=== PATIENT | female | born 1975 | race Two or more races ===

== ENCOUNTER 2020-08-03 00:59 | Inpatient (IN) | payer OTHER ==
[2020-08-03] VITALS (18 sets, daily range): BP systolic 92–157; BP diastolic 64–95
[~2020-08-03] VITALS: Ht 160 cm; Wt 59.9 kg
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
[2020-08-03] MEDS ORDERED: Cefepime HCl 2 GM in NS 110 ML IV ONE (01:30)
[2020-08-03] MEDS ORDERED: Sodium Chloride 2,200 ML IVLG ONE (01:30)
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
[2020-08-03 01:39] LABS: BASOPHILS % (AUTO) 0.6 % (0.0-2.0); EOSINOPHILS % (AUTO) 0.2 % (0.0-3.0); HEMATOCRIT 35.2 % (37.0-47.0); HEMOGLOBIN 11.3 G/DL (12.0-16.0); MEAN CORPUSCULAR VOLUME 96 FL (80-99); NEUTROPHILS % (AUTO) 80.2 % (45.0-75.0); PLATELET COUNT 413 K/UL (150-450); RED BLOOD COUNT 3.68 M/UL (4.20-5.40); RED CELL DISTRIBUTION WIDTH 18.1 % (11.6-14.8); WHITE BLOOD COUNT 11.2 K/UL (4.8-10.8)
[2020-08-03] MEDS ORDERED: cefTRIAXone 1 GM in NS 55 ML IVPB ONE (01:45)
[2020-08-03] MEDS ORDERED: Pantoprazole Inj IVP ONE (01:45)
[2020-08-03 01:53] LABS: ANION GAP 13 mmol/L (5-15); BLOOD UREA NITROGEN 18 mg/dL (7-18); CALCIUM 7.6 MG/DL (8.5-10.1); CARBON DIOXIDE 20 MMOL/L (21-32); CHLORIDE 107 MMOL/L (98-107); CREATININE 1.5 MG/DL (0.55-1.30); POTASSIUM 4.4 MMOL/L (3.5-5.1); SODIUM 140 MMOL/L (136-145)
[2020-08-03 02:05] LABS: ALANINE AMINOTRANSFERASE 74 U/L (12-78); ALBUMIN 3.2 G/DL (3.4-5.0); ALBUMIN/GLOBULIN RATIO 0.9 (1.0-2.7); ALKALINE PHOSPHATASE 116 U/L (46-116); ASPARTATE AMINO TRANSFERASE 147 U/L (15-37); BILIRUBIN,TOTAL < 0.1 MG/DL (0.2-1.0)
--- NOTE | 2020-08-03 02:20 | NUR ---
ED Nurse Note: Report given to RIANNA CM
[2020-08-03 02:24] LABS: PHOSPHORUS 8.6 MG/DL (2.5-4.9)
--- NOTE | 2020-08-03 02:44 | NUR ---
ED Nurse Note: Patient unable to tolerate PO medications, ERMD aware, non admin aspirin.
[2020-08-03 04:04] LABS: APPEARANCE,URINE CLEAR; BILIRUBIN, URINE NEGATIVE (NEGATIVE); COLOR,URINE PALE YELLOW; GLUCOSE, URINE (UA) 4+ (NEGATIVE); KETONES,URINE NEGATIVE (NEGATIVE); LEUKOCYTE ESTERASE ,URINE NEGATIVE (NEGATIVE); NITRITE,URINE NEGATIVE (NEGATIVE); PH,URINE 5 (4.5-8.0); PROTEIN,URINE 3+ (NEGATIVE); UROBILINOGEN,URINE NORMAL MG/DL (0.0-1.0)
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
[2020-08-03] MEDS ORDERED: SODIUM THIOSULFATE 12.5 GM/50 ML IV ONE (04:45)
--- NOTE | 2020-08-03 04:58 | NUR ---
ED Nurse Note: Patient taken to CT in stable condition
--- NOTE | 2020-08-03 07:12 | NUR ---
HAND-OFF: Report given to BREA Valdez.
--- NOTE | 2020-08-03 07:47 | Diagnostic Imaging Report ---
EXAM: CT Head Without Intravenous Contrast CLINICAL HISTORY: ams TECHNIQUE: Axial computed tomography images of the head/brain without intravenous contrast. CTDI is 53.40 mGy and DLP is 1098.90 mGy-cm. One or more of the following dose reduction techniques were used: automated exposure control, adjustment of the mA and/or kV according to patient size, use of iterative reconstruction technique. COMPARISON: No relevant prior studies available. FINDINGS: Brain: Unremarkable. No hemorrhage. No significant white matter disease. No edema. Ventricles: Unremarkable. No ventriculomegaly. Bones/joints: Unremarkable. No acute fracture. Soft tissues: Unremarkable. Sinuses: Mild mucosal thickening in the ethmoid sinuses. Mastoid air cells: Unremarkable as visualized. No mastoid effusion. IMPRESSION: No acute intracranial abnormality
[2020-08-03] MEDS ORDERED: Miralax 17gm pkt ORAL PRN (08:30)
[2020-08-03] MEDS ORDERED: Promethazine/Codeine 5ml UD ORAL PRN (08:30)
[2020-08-03] MEDS ORDERED: cefTRIAXone 1 GM in D5W 55 ML IVPB SCH ×2 (08:30→22:00)
--- NOTE | 2020-08-03 08:35 | NUR ---
ED Nurse Note: RT at bedside for ABG.
--- NOTE | 2020-08-03 09:19 | NUR ---
ED Nurse Note: Offerred juice to pt as requested. ERMD aware.
--- NOTE | 2020-08-03 09:19 | NUR ---
ED Nurse Note: [employer] set up technician at patient's bedside for 2D echocardiogram.
[2020-08-03] MEDS ORDERED: Morphine Sulfate 2mg/ml Inj(IV/IM USE ONLY) ONE (09:25)
--- NOTE | 2020-08-03 09:28 | NUR ---
ED Nurse Note: pt complains of L lower rib severe pain, notified ermd; per dr. rachel, pt may have 2mg of morphine; overrode morphine 2mg at pyxis.
[2020-08-03] MEDS ORDERED: Morphine Sulfate 2mg/ml Inj(IV/IM USE ONLY) IVP ONE ×2 (09:30→19:15)
--- NOTE | 2020-08-03 10:15 | NUR ---
ED Nurse Note: Pt vomited 1x, zofran 4mg IV given via central line.
[2020-08-03] MEDS: Azithromycin 250 MG in D5W 275 ML IV SCH (10:40)
[2020-08-03] MEDS: Heparin 5000 units/ml inj SUBQ SCH ×2 (10:41→21:00)
--- NOTE | 2020-08-03 10:49 | NUR ---
ED Nurse Note: US tech at bedside for venous duplex.
[2020-08-03] MEDS ORDERED: LORazepam Inj 2mg/ml 1ml IV ONE (15:00)
--- NOTE | 2020-08-03 17:05 | Diagnostic Imaging Report ---
Indication: Reason For Exam: DVT Technique: Grayscale and duplex images of the bilateral lower extremity veins Comparison: None Findings: Bilaterally, grayscale and duplex images demonstrate no evidence of intraluminal thrombus. Normal phasic Doppler waveforms, demonstrating normal augmentation response and no evidence of valvular insufficiency. Greater saphenous vein(s) and tibial veins are patent. Normal compressibility. Impression: Negative for evidence of lower extremity deep venous thrombosis bilaterally
--- NOTE | 2020-08-03 17:37 | Diagnostic Imaging Report ---
Indication: Cough Technique: One view of the chest Comparison: none Findings: Patient's chin obscures the right lung apex. The heart size is normal. The lungs and pleural spaces are grossly clear. Impression: No acute process
--- NOTE | 2020-08-03 19:30 | NUR ---
ED Nurse Note: received patient from arnie padgett rn. patient resting in bed with no acute distress. ao4. spo2 90% on room air; nc 2l placed; spo2 98%; respirations even and unlabored. vitals stable to baseline. discussed plan of care with patient; aware of pending admission. belongings list completed at bedside. all safety measures met.
--- NOTE | 2020-08-03 19:35 | NUR ---
ED Nurse Note: patient refused mrsa vre cre swab. explained risk and benefits x3; patient still refused.
--- NOTE | 2020-08-03 21:00 | NUR ---
TRANSFER TO FLOOR: Patient transferred to ICU 246B as ordered, per . Report given to BREA manriquez. Pt stable for transfer. Transfer to unit via gurny with two RN. Belongings and adm packet sent with pt.
--- NOTE | 2020-08-03 21:15 | NUR ---
NURSE NOTES: Received report from BREA Boyle. patient arrived to unit via gurney, A04 and able to transfer self from gurney to bed. patient denied suicidal ideation but refused to explain circumstances surrounding this admission. repirations even and unlabored O2 sat 92% on room air, 2L NC applied. BP 131/81 HR 96 NSR on monitor and afebrile. patient denies nausea at this time. right femoral TLC clean dry intact. skin warm dry intact. Walters catheter draining yellow urine. patient repositioned self. bed locked lowest position call light within reach.
--- NOTE | 2020-08-03 21:23 | NUR ---
NURSE NOTES: Paged Dr. Charles to report patient arrived to ICU unit, stating she is anxious O2 sat 92% on room air, 2L NC applied. orders received read back and carried out.
--- NOTE | 2020-08-03 22:00 | NUR ---
NURSE NOTES: patient asleep after prn Zofran administered for nausea, no emesis at this time. reparations even and unlabored on 2L NC. BP 137/74 HR 98 NSR on monitor and afebrile. right femoral TLC clean dry intact. skin warm dry intact. Walters catheter draining yellow urine. patient repositioned self. bed locked lowest position call light within reach.
[2020-08-04] VITALS (15 sets, daily range): BP systolic 124–150; BP diastolic 69–92
--- NOTE | 2020-08-04 | NUR ---
NURSE NOTES: patient stated feeling anxious, no emesis at this time. reparations even and unlabored on 2L NC. BP 131/72 HR 95 NSR on monitor and temp 100.6F oral prn tylenol administered. right femoral TLC clean dry intact. skin warm dry intact. Walters catheter draining yellow urine. patient repositioned self. bed locked lowest position call light within reach.
[2020-08-04] MEDS: ALPRAZolam 0.25mg tab ORAL PRN ×3 (00:22→21:15)
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
--- NOTE | 2020-08-04 01:18 | NUR ---
NURSE NOTES: Dr. Lechuga returned page, order received, read back, and carried out.
--- NOTE | 2020-08-04 02:00 | NUR ---
NURSE NOTES: patient asleep arousable to name. reparations even and unlabored on room air. BP 135/79 HR 91 NSR on monitor. right femoral TLC clean dry intact. Walters catheter draining yellow urine. patient repositioned self. bed locked lowest position call light within reach.
[2020-08-04] MEDS: Morphine Sulfate 2mg/ml Inj(IV/IM USE ONLY) IVP PRN ×9 (02:57→19:52)
--- NOTE | 2020-08-04 04:00 | NUR ---
NURSE NOTES: patient asleep arousable to name. reparations even and unlabored on room air. BP 126/78 HR 89 NSR on monitor. right femoral TLC clean dry intact. Walters catheter draining yellow urine. patient repositioned self. bed locked lowest position call light within reach.
--- NOTE | 2020-08-04 06:00 | NUR ---
NURSE NOTES: patient asleep arousable to name, AOx4. reparations even and unlabored on room air, with small amount of thick becker phlegm noted. BP 140/87 HR 86 NSR on monitor. right femoral TLC clean dry intact. Walters catheter draining yellow urine. patient repositioned self. bed locked lowest position call light within reach.
[2020-08-04 06:03] LABS: HEMATOCRIT 29.1 % (37.0-47.0); HEMOGLOBIN 9.3 G/DL (12.0-16.0); MEAN CORPUSCULAR VOLUME 94 FL (80-99); PLATELET COUNT 312 K/UL (150-450); RED BLOOD COUNT 3.08 M/UL (4.20-5.40); RED CELL DISTRIBUTION WIDTH 17.7 % (11.6-14.8); WHITE BLOOD COUNT 20.8 K/UL (4.8-10.8)
[2020-08-04 06:34] LABS: ALANINE AMINOTRANSFERASE 207 U/L (12-78); ALBUMIN 2.7 G/DL (3.4-5.0); ALBUMIN/GLOBULIN RATIO 0.9 (1.0-2.7); ALKALINE PHOSPHATASE 96 U/L (46-116); ANION GAP 9 mmol/L (5-15); ASPARTATE AMINO TRANSFERASE 148 U/L (15-37); BILIRUBIN,TOTAL 0.2 MG/DL (0.2-1.0); BLOOD UREA NITROGEN 10 mg/dL (7-18); CALCIUM 7.3 MG/DL (8.5-10.1); CARBON DIOXIDE 23 MMOL/L (21-32); CHLORIDE 106 MMOL/L (98-107); CREATININE 0.7 MG/DL (0.55-1.30); PHOSPHORUS 2.1 MG/DL (2.5-4.9); POTASSIUM 4.1 MMOL/L (3.5-5.1); SODIUM 138 MMOL/L (136-145)
--- NOTE | 2020-08-04 07:17 | General Progress Note ---
Subjective ROS Limited/Unobtainable: Yes Allergies: Coded Allergies: No Known Allergies (Unverified , 08/03/20) Objective Last 24 Hour Vital Signs Date Time Temp Pulse Resp B/P (MAP) Pulse Ox O2 Delivery O2 Flow Rate FiO2 08/04/20 07:00 101 20 128/75 (92) 100 08/04/20 06:00 86 22 140/87 (104) 95 08/04/20 05:30 130/88 08/04/20 05:00 97 15 130/88 (102) 98 08/04/20 04:00 Room Air 08/04/20 04:00 96 08/04/20 04:00 99.2 89 23 126/78 (94) 95 08/04/20 03:00 101 18 124/74 (91) 100 08/04/20 02:00 91 22 135/79 (97) 95 08/04/20 01:00 92 21 133/78 (96) 100 08/04/20 00:52 100.0 08/04/20 00:00 Nasal Cannula 2.0 08/04/20 00:00 98.9 95 22 131/72 (91) 100 08/04/20 00:00 104 08/03/20 23:00 100 20 128/74 (92) 100 08/03/20 22:00 98.8 98 23 137/74 (95) 100 08/03/20 21:38 Nasal Cannula 2.0 08/03/20 21:38 2.0 08/03/20 21:01 97.0 99 18 128/95 96 Nasal Cannula 2.0 08/03/20 21:00 98.8 96 24 131/81 96 Nasal Cannula 2.0 08/03/20 21:00 98.8 96 24 131/81 (98) 96 08/03/20 20:15 97.5 102 18 128/82 96 Nasal Cannula 2.0 08/03/20 19:48 98.8 08/03/20 19:30 100 20 128/74 100 08/03/20 19:30 97.0 104 18 130/84 96 Nasal Cannula 2.0 08/03/20 18:34 124/72 08/03/20 18:27 97.0 109 20 157/92 100 Nasal Cannula 2.0 44 08/03/20 17:23 97.0 107 20 157/92 100 Nasal Cannula 2.0 44 08/03/20 17:10 146/92 08/03/20 16:18 97.0 105 20 153/95 100 Nasal Cannula 2.0 44 08/03/20 16:10 142/88 08/03/20 15:35 152/95 08/03/20 15:21 112 21 136/91 100 08/03/20 15:14 97.0 112 21 136/91 100 Nasal Cannula 2.0 44 08/03/20 14:10 145/95 08/03/20 13:53 97.0 102 20 142/95 100 Nasal Cannula 2.0 44 08/03/20 13:33 142/95 08/03/20 12:15 121/74 08/03/20 12:01 97.0 101 19 121/74 99 Nasal Cannula 2.0 44 08/03/20 11:45 97.0 99 20 130/86 98 Nasal Cannula 2.0 44 08/03/20 11:15 130/86 08/03/20 10:45 97.0 08/03/20 10:40 140/85 08/03/20 10:32 97.0 108 20 140/85 92 Nasal Cannula 2.0 08/03/20 09:10 97.0 110 20 130/83 99 Venturi Mask 2.0 44 08/03/20 09:00 130/85 08/03/20 08:45 123/91 08/03/20 08:10 97.0 110 20 131/88 99 Venturi Mask 2.0 44 Intake and Output 08/03/20 08/04/20 19:00 07:00 Intake Total 235 ml Balance 235 ml Intake Oral 180 ml IV Total 55 ml # Voids 470 Laboratory Tests 08/03/20 08:40: Arterial Blood pH 7.245*L, Arterial Blood Partial Pressure CO2 42.8, Arterial Blood Partial Pressure O2 110.6H, Arterial Blood HCO3 18.6L, Arterial Blood Oxygen Saturation 98.0, Arterial Blood Base Excess -8.7L, Abdi Test Positive 08/04/20 04:00: White Blood Count 20.8#H, Red Blood Count 3.08L, Hemoglobin 9.3L, Hematocrit 29.1L, Mean Corpuscular Volume 94, Mean Corpuscular Hemoglobin 30.3, Mean Corpuscular Hemoglobin Concent 32.1, Red Cell Distribution Width 17.7H, Platelet Count 312, Mean Platelet Volume 6.2L, Neutrophils (%) (Auto) , Lymphocytes (%) (Auto) , Monocytes (%) (Auto) , Eosinophils (%) (Auto) , Basophils (%) (Auto) , Neutrophils % (Manual) [Pending], Lymphocytes % (Manual) [Pending], Platelet Estimate [Pending], Platelet Morphology [Pending], Sodium Level 138, Potassium Level 4.1, Chloride Level 106, Carbon Dioxide Level 23, Anion Gap 9, Blood Urea Nitrogen 10, Creatinine 0.7#, Estimat Glomerular Filtration Rate > 60, Glucose Level 87#, Calcium Level 7.3L, Phosphorus Level 2.1L, Magnesium Level 1.8, Total Bilirubin 0.2, Aspartate Amino Transf (AST/SGOT) 148H, Alanine Aminotransferase (ALT/SGPT) 207H, Alkaline Phosphatase 96, Total Protein 5.7L, Albumin 2.7L, Globulin 3.0, Albumin/Globulin Ratio 0.9L Height (Feet): 5 Height (Inches): 4.00 Weight (Pounds): 131 General Appearance: alert EENT: normal ENT inspection Neck: supple Cardiovascular: normal rate Respiratory/Chest: lungs clear Abdomen: normal bowel sounds, non tender, soft Extremities: non-tender Assessment/Plan Assessment/Plan: ? GIB polysub abuse anemia elevated LFTS npo ivf ppi check stool ob repeat labs hepatitis panel EGD if needed Timothy Bhakta MD Aug 04, 2020 07:17
[2020-08-04] MEDS ORDERED: Metoclopramide 10mg/2ml Inj IVP PRN (07:30)
--- NOTE | 2020-08-04 08:00 | NUR ---
NURSE NOTES: patient AOx4, with productive cough, feeling anxious prn xanax given. small amount of thick becker phlegm noted. BP 144/85 HR 96 NSR on monitor temp 99.5F oral. right femoral TLC clean dry intact. Walters catheter draining yellow urine. patient repositioned self. bed locked lowest position call light within reach.
[2020-08-04] MEDS: Pantoprazole Inj IVP SCH ×2 (08:09→21:15)
[2020-08-04] MEDS: Heparin 5000 units/ml inj SUBQ SCH ×2 (08:09→21:00)
--- NOTE | 2020-08-04 09:10 | NUR ---
NURSE HAND-OFF REPORT: Important Events on Shift: patient complained of "lung" pain, nausea but no emesis Patient Status: Diet: NPO except ice chips and meds Pending Orders: CBC Pending Results/Labs:CBC Pending MD notification: Latest Vital Signs: Temperature 99.5 , Pulse 96 , B/P 144 /85 , Respiratory Rate 15 , O2 SAT 99 , Room Air, O2 Flow Rate . Vital Sign Comment: WNL EKG Rhythm: Sinus Rhythm Rhythm change?: N MD Notified?: - MD Response: Latest Lino Fall Score: 35 Fall Risk: Medium Risk Safety Measures: Call light Within Reach, Bed Alarm Zone 1, Side Rails Side Rails x2, Bed position Low and Locked. Fall Precautions: Yellow Socks Yellow Gown Door Sign Patient Fall Education Report given to BREA Lawson.
--- NOTE | 2020-08-04 09:18 | NUR ---
NURSE NOTES: BREA MIRELES SENT STOOL OB PRIOR TRANSFER. WILL CONT TO MONITOR.
--- NOTE | 2020-08-04 09:19 | NUR ---
NURSE NOTES: RECEIVED PATIENT A/A/OX4, ABLE TO VERBALIZE NEEDS. APPEARED TO BE IMPULSIVE AND DEMANDING WITH PAIN MEDICATIONS. PATIENT IS C/O CP WITHOUT RADIATING TO SPECIFIC LOCATION BUT MORE FROM COUGHING. HEART AND LUNG SOUNDS AUDIBLE AND CLEAR. WILL CALL RT FOR HHN. VSS AND ON RA. TLC DRY, PATENT AND INTACT. SKIN IS INTACT. BLE EDEMA NONPITTING. UPPER ARMS ARE EDEMATOUS WELL. NO ACUTE CARDIO-RESP DISTRESS NOTED. PERSONAL BELONGINGS NOTED. ABLE TO AMBULATE WITH ASSISTANCE. KEPT BED IN THE LOWEST POSITION. SIDERAILS ARE UPX2, CALL LIGHT IS WITHIN REACH. BED BRAKES AND LOCK ON MODE. WILL CONT THE PLAN OF CARE.
[2020-08-04] MEDS: Albuterol/Ipratropium 3ml neb HHN PRN (09:27)
--- NOTE | 2020-08-04 09:31 | NUR ---
NURSE NOTES: HAVING HHN WE SPEAK. WILL CONT TO MONITOR
[2020-08-04 10:09] LABS: HEMATOCRIT 29.6 % (37.0-47.0); HEMOGLOBIN 9.9 G/DL (12.0-16.0); MEAN CORPUSCULAR VOLUME 91 FL (80-99); PLATELET COUNT 296 K/UL (150-450); RED BLOOD COUNT 3.24 M/UL (4.20-5.40); RED CELL DISTRIBUTION WIDTH 17.8 % (11.6-14.8); WHITE BLOOD COUNT 19.8 K/UL (4.8-10.8)
[2020-08-04 10:16] LABS: INR 1.1 (0.9-1.1)
[2020-08-04] MEDS: Azithromycin 250 MG in D5W 275 ML IV SCH ×2 (10:16→10:24)
[2020-08-04 10:35] LABS: LACTATE DEHYDROGENASE 282 U/L (81-234)
--- NOTE | 2020-08-04 10:53 | NUR ---
NURSE NOTES: INFORMED DR BAILEY PATIENT IS NPO WITH NO IVF. PER NOTES IVF NEEDED AN ORDER. WILL CONT TO MONITOR. Addendum: 08/04/20 at 1327 by ADAM ARMIREZ LVN NEW ORDER OBTAINED AND CARRIED OUT. WILL CONT TO MONITOR.
[2020-08-04 10:55] LABS: % IRON SATURATION 7 % (15-50); IRON 21 ug/dL (50-175); TOTAL IRON BINDING CAPACITY 294 ug/dL (250-450)
--- NOTE | 2020-08-04 13:01 | Cardiology Report ---
APPROVED REPORT EKG Measurement Heart [id number] <Conclusion> Sinus tachycardia Otherwise normal ECG
--- NOTE | 2020-08-04 13:27 | NUR ---
NURSE NOTES: PATIENT REQUESTED FOR KYLIE ACOSTA TO BE OUT. NOTIFIED DR HERRON SINCE HE DID NOT ORDER F/C INFORMED PMD INSTEAD. AWAITING FOR CALL BACK. WILL CONT TO MONITOR. Addendum: 08/04/20 at 1428 by ADAM RAMIREZ LVN order obtained to d/c from PMD. will cont to monitor.
--- NOTE | 2020-08-04 14:14 | Cardiology Report ---
APPROVED REPORT EXAM: Two-dimensional and M-mode echocardiogram with Doppler and color Doppler. INDICATION Left ventricular function M-Mode DIMENSIONS IVSd0.9 (0.7-1.1cm)Left Atrium (MM)4.4 (1.6-4.0cm) LVDd3.7 (3.5-5.6cm)Aortic Root2.8 (2.0-3.7cm) PWd0.9 (0.7-1.1cm)Aortic Cusp Exc.1.6 (1.5-2.0cm) IVSs1.7 cmEPSS0.4 (>1.0cm) LVDs2.2 (2.5-4.0cm) PWs1.6 cm Other Information Technically limited study due to pt's resistance. <Conclusion> Normal left ventricular chamber size. There is hypokinesis in distal posterior and apical cap, otherwise all other segments seem to have normal wall motion. Ischemia cardiomyopathy can not be excluded. Left ventricular ejection fraction estimated to be 50 %. No left ventricular hypertrophy. No evidence of pericardial effusion. All other cardiac chamber sizes are within normal limits. Focal aortic valve sclerosis with adequate cusp excursion. Thickened mitral valve leaflets with normal excursion. Mitral annulus and aortic root calcification. Pulmonic valve not well visualized. Normal tricuspid valve structure. Subcostal view unobtainable due to pt's refusal. IVC dilated at 2.3 cm without physiologic collapse suggestive of increased RA pressure. A color flow and spectral Doppler study was performed and revealed: No aortic regurgitation. Mild mitral regurgitation. Mitral inflow indicates normal left ventricular diastolic function. Moderate tricuspid regurgitation. Tricuspid systolic velocities suggests peak right ventricular systolic pressure of 47 mmHg, consistent with moderate pulmonary hypertension. No pulmonic regurgitation present.
--- NOTE | 2020-08-04 14:35 | NUR ---
NURSE NOTES: DUE TO PATIENT C/O LEFT SHOULDER. DR ROMERO ORDERED 2V SHOULDER XRAY. WILL CONT TO MONITOR.
--- NOTE | 2020-08-04 15:39 | NUR ---
CASE MANAGEMENT:INITIAL REVIEW 44 YR OLD FEMALE BIBA FROM HOME CC;OVERDOSE SI;GI BLEED. SEPSIS. ENCEPHALOPATHY. 97.0 119 24 84/64 99% VENTURI MASK FIO2 44% WBC 11.2 CR 1.5 BG 253 AST 147 ALB 3.2 TSH 4.858 PT 12.5 APTT 21 UA+ PROTEIN, GLUCOSE, BLOOD, RBC URINE TOX (+) OPIATES, BENZO, COCAINE, THC ABG pH 7.203 pO2 60.4 HCO3 14.8 O2 SAT 89.1 BASE EXCESS -12.3 COVID RAPID ~ NEGATIVE HEAD CT ~ No acute intracranial abnormality CXR ~ NEGATIVE VENOUS DUPLEX ~ NEGATIVE IS;NARCAN~ADMINISTERED IN THE FIELD CEFEPIME IV FLAGYL IV IVF NS PROTONIX IV ROCEPHIN IV ASA PO ZOFRAN IV Na THIOSULFATE IV ADMITTED TO ICU ICU STATUS DCP;FROM HOME
--- NOTE | 2020-08-04 16:17 | Cardiology Progress Note ---
Subjective Subjective [id number] Objective Last 24 Hour Vital Signs Date Time Temp Pulse Resp B/P (MAP) Pulse Ox O2 Delivery O2 Flow Rate FiO2 08/04/20 16:05 98.2 94 20 142/92 (109) 97 08/04/20 13:40 98.4 08/04/20 12:00 Room Air 08/04/20 12:00 98.4 92 21 149/69 (95) 98 08/04/20 10:15 98.2 08/04/20 09:30 76 20 100 Room Air 21 67 22 97 08/04/20 09:19 98.2 101 21 139/82 (101) 98 08/04/20 09:18 98.2 101 21 139/82 (101) 98 08/04/20 08:00 108 08/04/20 08:00 99.5 96 15 144/85 (104) 99 08/04/20 08:00 Room Air 08/04/20 07:00 101 20 128/75 (92) 100 08/04/20 06:00 86 22 140/87 (104) 95 08/04/20 05:30 130/88 08/04/20 05:00 97 15 130/88 (102) 98 08/04/20 04:00 Room Air 08/04/20 04:00 96 08/04/20 04:00 99.2 89 23 126/78 (94) 95 08/04/20 03:00 101 18 124/74 (91) 100 08/04/20 02:00 91 22 135/79 (97) 95 08/04/20 01:00 92 21 133/78 (96) 100 08/04/20 00:52 100.0 08/04/20 00:00 Nasal Cannula 2.0 08/04/20 00:00 98.9 95 22 131/72 (91) 100 08/04/20 00:00 104 08/03/20 23:00 100 20 128/74 (92) 100 08/03/20 22:00 98.8 98 23 137/74 (95) 100 08/03/20 21:38 Nasal Cannula 2.0 08/03/20 21:38 2.0 08/03/20 21:01 97.0 99 18 128/95 96 Nasal Cannula 2.0 08/03/20 21:00 98.8 96 24 131/81 96 Nasal Cannula 2.0 08/03/20 21:00 98.8 96 24 131/81 (98) 96 08/03/20 20:15 97.5 102 18 128/82 96 Nasal Cannula 2.0 08/03/20 19:48 98.8 08/03/20 19:30 100 20 128/74 100 08/03/20 19:30 97.0 104 18 130/84 96 Nasal Cannula 2.0 08/03/20 18:34 124/72 08/03/20 18:27 97.0 109 20 157/92 100 Nasal Cannula 2.0 44 08/03/20 17:23 97.0 107 20 157/92 100 Nasal Cannula 2.0 44 08/03/20 17:10 146/92 08/03/20 16:18 97.0 105 20 153/95 100 Nasal Cannula 2.0 44 Intake and Output 08/03/20 08/04/20 19:00 07:00 Intake Total 235 ml Balance 235 ml Intake Oral 180 ml IV Total 55 ml # Voids 470 Laboratory Tests Test 08/04/20 04:00 08/04/20 08:00 08/04/20 08:21 08/04/20 10:00 White Blood Count 20.8 K/UL (4.8-10.8) #H 19.8 K/UL (4.8-10.8) H Red Blood Count 3.08 M/UL (4.20-5.40) L 3.24 M/UL (4.20-5.40) L Hemoglobin 9.3 G/DL (12.0-16.0) L 9.9 G/DL (12.0-16.0) L Hematocrit 29.1 % (37.0-47.0) L 29.6 % (37.0-47.0) L Mean Corpuscular Volume 94 FL (80-99) 91 FL (80-99) Mean Corpuscular Hemoglobin 30.3 PG (27.0-31.0) 30.4 PG (27.0-31.0) Mean Corpuscular Hemoglobin Concent 32.1 G/DL (32.0-36.0) 33.3 G/DL (32.0-36.0) Red Cell Distribution Width 17.7 % (11.6-14.8) H 17.8 % (11.6-14.8) H Platelet Count 312 K/UL (150-450) 296 K/UL (150-450) Mean Platelet Volume 6.2 FL (6.5-10.1) L 6.0 FL (6.5-10.1) L Neutrophils (%) (Auto) % (45.0-75.0) % (45.0-75.0) Lymphocytes (%) (Auto) % (20.0-45.0) % (20.0-45.0) Monocytes (%) (Auto) % (1.0-10.0) % (1.0-10.0) Eosinophils (%) (Auto) % (0.0-3.0) % (0.0-3.0) Basophils (%) (Auto) % (0.0-2.0) % (0.0-2.0) Differential Total Cells Counted 100 100 Neutrophils % (Manual) 89 % (45-75) H 95 % (45-75) H Lymphocytes % (Manual) 9 % (20-45) L 3 % (20-45) L Monocytes % (Manual) 2 % (1-10) 2 % (1-10) Eosinophils % (Manual) 0 % (0-3) 0 % (0-3) Basophils % (Manual) 0 % (0-2) 0 % (0-2) Band Neutrophils 0 % (0-8) 0 % (0-8) Platelet Estimate Adequate Adequate Platelet Morphology Normal Normal Hypochromasia 1+ 1+ Anisocytosis 1+ 1+ Sodium Level 138 MMOL/L (136-145) Potassium Level 4.1 MMOL/L (3.5-5.1) Chloride Level 106 MMOL/L (98-107) Carbon Dioxide Level 23 MMOL/L (21-32) Anion Gap 9 mmol/L (5-15) Blood Urea Nitrogen 10 mg/dL (7-18) Creatinine 0.7 MG/DL (0.55-1.30) # Estimat Glomerular Filtration Rate > 60 mL/min (>60) Glucose Level 87 MG/DL (74-106) # Calcium Level 7.3 MG/DL (8.5-10.1) L Phosphorus Level 2.1 MG/DL (2.5-4.9) L Magnesium Level 1.8 MG/DL (1.8-2.4) Total Bilirubin 0.2 MG/DL (0.2-1.0) Aspartate Amino Transf (AST/SGOT) 148 U/L (15-37) H Alanine Aminotransferase (ALT/SGPT) 207 U/L (12-78) H Alkaline Phosphatase 96 U/L (46-116) Total Protein 5.7 G/DL (6.4-8.2) L Albumin 2.7 G/DL (3.4-5.0) L Globulin 3.0 g/dL Albumin/Globulin Ratio 0.9 (1.0-2.7) L Carcinoembryonic Antigen Pending Arterial Blood pH 7.423 (7.350-7.450) Arterial Blood Partial Pressure CO2 28.0 mmHg (35.0-45.0) L Arterial Blood Partial Pressure O2 87.4 mmHg (75.0-100.0) Arterial Blood HCO3 17.9 mmol/L (22.0-26.0) *L Arterial Blood Oxygen Saturation 97.9 % (95-100) Arterial Blood Base Excess -5.5 (-2-2) L Abdi Test Positive Erythrocyte Sedimentation Rate 42 MM/HR (0-20) H Reticulocyte Count 0.7 % (0.5-2.0) Prothrombin Time 12.5 SEC (9.30-11.50) H Prothromb Time International Ratio 1.1 (0.9-1.1) Activated Partial Thromboplast Time 21 SEC (23-33) L Iron Level 21 ug/dL (50-175) L Total Iron Binding Capacity 294 ug/dL (250-450) Percent Iron Saturation 7 % (15-50) L Unsaturated Iron Binding 273 ug/dL (112-346) Lactate Dehydrogenase 282 U/L (81-234) H Vitamin B12 Level 418 PG/ML (193-986) Folate 6.0 NG/ML (8.6-58.9) L Microbiology Date/Time Source Procedure Growth Status 08/03/20 03:47 Nasopharynx SARS-CoV-2 RdRp Gene Assay - Final Complete 08/03/20 03:34 Straight Cath Urine Culture - Preliminary NO GROWTH AFTER 24 HOURS Resulted Mariela Kraus MD Aug 04, 2020 16:17
--- NOTE | 2020-08-04 16:24 | Diagnostic Imaging Report ---
FILM LEFT SHOULDER LEFT SHOULDER, 2 views INDICATION: Left shoulder pain COMPARISON: None FINDINGS: 2 views of the left shoulder are obtained. Bony structures are intact. Bone mineralization is within normal limits. No dislocation at the glenohumeral joint. Joint spaces are preserved. Soft tissues are within normal limits. IMPRESSION: No acute fracture or dislocation identified.
--- NOTE | 2020-08-04 16:40 | History & Physical ---
History and Physical History & Physicial Dictated for Int med-dr Charles no. [id number]. Brent Lynn MD Aug 04, 2020 16:40
--- NOTE | 2020-08-04 17:45 | Consultation ---
DATE OF CONSULTATION: 08/04/2020 CARDIOLOGY CONSULTATION CONSULTING PHYSICIAN: Mariela Kraus MD. PATIENT ID: This is a 44-year-old female. REASON FOR EVALUATION: Abnormal EKG. HISTORY OF PRESENT ILLNESS: The patient was admitted with shortness of breath. The patient reports that she was sick for two months and she has continued coughing, and the patient also had vomiting yesterday. The patient apparently has history of multiple drug abuse and she is a smoker, and she is abusing cocaine and other substances as well. She denies any chest pain, however, she is short of breath. REVIEW OF SYSTEMS: Remarkable for some fever and chills, but she is not a reliable historian considering that she was altered yesterday. She also has significant vomiting. PHYSICAL EXAMINATION: GENERAL: This is a middle-aged female, appears to be in moderate distress. VITAL SIGNS: Blood pressure 150/69, heart rate is 92, temperature is normal. Oxygen saturation on room air is 98%. HEENT: PERRLA. EOMI. NECK: Neck veins are not distended. She has bilateral palpable carotid upstroke. LUNGS: She has rales and rhonchi. HEART: Regular with accented A2. ABDOMEN: Soft. Positive bowel sounds. Slight tenderness in the epigastric area. EXTREMITIES: Lower extremities, no significant lesions. NEUROLOGIC: She appears to be slightly confused, but intact. DIAGNOSTIC DATA: Chest x-ray did not show any specific abnormalities. Echocardiogram, the report is available, but I cannot see the imaging. It revealed presence of ejection fraction 50%, and there is hypokinesis of the posterior and apical cap. According to the report, pulmonary pressure is about 55 to 57 mmHg. The chest x-ray was interpreted as unremarkable. Her EKG shows the patient has peaked __P___ waves signifying right atrial enlargement and left anterior hemiblock. She is in sinus rhythm. LABORATORY DATA: Revealed white count of 19.8, hemoglobin 11. Platelets are unremarkable. She has stable creatinine, but her liver enzymes are elevated. Toxicology was positive for cocaine, marijuana, and opiates, but not alcohol. The blood gas was noted. The patient has respiratory distress. She has wheezing bilaterally. She is in respiratory treatment and she is on steroids that probably is responsible for her elevated white count. Unfortunately, I cannot see her echocardiogram. It was reported that she has distal wall motion abnormalities could be due to coronary artery disease. She is a high risk for CAD due to smoking and cocaine. Her labs otherwise, initial laboratory was significant for presence of metabolic acidosis and that could be due to multiple reasons, and her troponin was 0.4 and BNP was 204. IMPRESSION AND RECOMMENDATION: The patient definitely has ongoing lung disease, probably aspiration plus asthma. She also has evidence of pulmonary hypertension that could be secondary or maybe she needs more workup for primary pulmonary hypertension, not clear if she has previous any workup for that condition. At present time, I am going to just monitor her and then she might need additional workup such as coronary angiography and right heart catheterization. Thank you for your consultation. Mariela Kraus M.D. DR: BERNADETTE JOB#: [id number] CC: ALIN
--- NOTE | 2020-08-04 17:48 | Consultation ---
History of Present Illness General Date patient seen: Aug 04, 2020 Chief Complaint: Overdose Present Illness HPI 44 y/o F with no prior medical history presented to ED on 08/03/20 with coffee- ground emesis, generalized malaise, nausea and chest pain. Patient referred had recent PNA and was given antibiotic. Started having diarrhea 1 week later, foul smelling. +abd pain Allergies: Coded Allergies: No Known Allergies (Unverified , 08/03/20) Patient History Healthcare decision maker Resuscitation status Advanced Directive on File Patient History Narrative Pmhx: as above Shx: reviewed Fhmx: non contributory Review of Systems All Other Systems: negative except mentioned in HPI Physical Exam Physical Exam Narrative General Appearance: alert EENT: normal ENT inspection Neck: supple Cardiovascular: normal rate Respiratory/Chest: lungs clear Abdomen: normal bowel sounds, non tender, soft Extremities: non-tender Last 24 Hour Vital Signs Date Time Temp Pulse Resp B/P (MAP) Pulse Ox O2 Delivery O2 Flow Rate FiO2 08/04/20 16:05 98.2 94 20 142/92 (109) 97 08/04/20 13:40 98.4 08/04/20 12:00 Room Air 08/04/20 12:00 98.4 92 21 149/69 (95) 98 08/04/20 10:15 98.2 08/04/20 09:30 76 20 100 Room Air 21 67 22 97 08/04/20 09:19 98.2 101 21 139/82 (101) 98 08/04/20 09:18 98.2 101 21 139/82 (101) 98 08/04/20 08:00 108 08/04/20 08:00 99.5 96 15 144/85 (104) 99 08/04/20 08:00 Room Air 08/04/20 07:00 101 20 128/75 (92) 100 08/04/20 06:00 86 22 140/87 (104) 95 08/04/20 05:30 130/88 08/04/20 05:00 97 15 130/88 (102) 98 08/04/20 04:00 Room Air 08/04/20 04:00 96 08/04/20 04:00 99.2 89 23 126/78 (94) 95 08/04/20 03:00 101 18 124/74 (91) 100 08/04/20 02:00 91 22 135/79 (97) 95 08/04/20 01:00 92 21 133/78 (96) 100 08/04/20 00:52 100.0 08/04/20 00:00 Nasal Cannula 2.0 08/04/20 00:00 98.9 95 22 131/72 (91) 100 08/04/20 00:00 104 08/03/20 23:00 100 20 128/74 (92) 100 08/03/20 22:00 98.8 98 23 137/74 (95) 100 08/03/20 21:38 Nasal Cannula 2.0 08/03/20 21:38 2.0 08/03/20 21:01 97.0 99 18 128/95 96 Nasal Cannula 2.0 08/03/20 21:00 98.8 96 24 131/81 96 Nasal Cannula 2.0 08/03/20 21:00 98.8 96 24 131/81 (98) 96 08/03/20 20:15 97.5 102 18 128/82 96 Nasal Cannula 2.0 08/03/20 19:48 98.8 08/03/20 19:30 100 20 128/74 100 08/03/20 19:30 97.0 104 18 130/84 96 Nasal Cannula 2.0 08/03/20 18:34 124/72 08/03/20 18:27 97.0 109 20 157/92 100 Nasal Cannula 2.0 44 Intake and Output 08/03/20 08/04/20 19:00 07:00 Intake Total 235 ml Balance 235 ml Intake Oral 180 ml IV Total 55 ml # Voids 470 Laboratory Tests Test 08/04/20 04:00 08/04/20 08:00 08/04/20 08:21 08/04/20 10:00 White Blood Count 20.8 K/UL (4.8-10.8) #H 19.8 K/UL (4.8-10.8) H Red Blood Count 3.08 M/UL (4.20-5.40) L 3.24 M/UL (4.20-5.40) L Hemoglobin 9.3 G/DL (12.0-16.0) L 9.9 G/DL (12.0-16.0) L Hematocrit 29.1 % (37.0-47.0) L 29.6 % (37.0-47.0) L Mean Corpuscular Volume 94 FL (80-99) 91 FL (80-99) Mean Corpuscular Hemoglobin 30.3 PG (27.0-31.0) 30.4 PG (27.0-31.0) Mean Corpuscular Hemoglobin Concent 32.1 G/DL (32.0-36.0) 33.3 G/DL (32.0-36.0) Red Cell Distribution Width 17.7 % (11.6-14.8) H 17.8 % (11.6-14.8) H Platelet Count 312 K/UL (150-450) 296 K/UL (150-450) Mean Platelet Volume 6.2 FL (6.5-10.1) L 6.0 FL (6.5-10.1) L Neutrophils (%) (Auto) % (45.0-75.0) % (45.0-75.0) Lymphocytes (%) (Auto) % (20.0-45.0) % (20.0-45.0) Monocytes (%) (Auto) % (1.0-10.0) % (1.0-10.0) Eosinophils (%) (Auto) % (0.0-3.0) % (0.0-3.0) Basophils (%) (Auto) % (0.0-2.0) % (0.0-2.0) Differential Total Cells Counted 100 100 Neutrophils % (Manual) 89 % (45-75) H 95 % (45-75) H Lymphocytes % (Manual) 9 % (20-45) L 3 % (20-45) L Monocytes % (Manual) 2 % (1-10) 2 % (1-10) Eosinophils % (Manual) 0 % (0-3) 0 % (0-3) Basophils % (Manual) 0 % (0-2) 0 % (0-2) Band Neutrophils 0 % (0-8) 0 % (0-8) Platelet Estimate Adequate Adequate Platelet Morphology Normal Normal Hypochromasia 1+ 1+ Anisocytosis 1+ 1+ Sodium Level 138 MMOL/L (136-145) Potassium Level 4.1 MMOL/L (3.5-5.1) Chloride Level 106 MMOL/L (98-107) Carbon Dioxide Level 23 MMOL/L (21-32) Anion Gap 9 mmol/L (5-15) Blood Urea Nitrogen 10 mg/dL (7-18) Creatinine 0.7 MG/DL (0.55-1.30) # Estimat Glomerular Filtration Rate > 60 mL/min (>60) Glucose Level 87 MG/DL (74-106) # Calcium Level 7.3 MG/DL (8.5-10.1) L Phosphorus Level 2.1 MG/DL (2.5-4.9) L Magnesium Level 1.8 MG/DL (1.8-2.4) Total Bilirubin 0.2 MG/DL (0.2-1.0) Aspartate Amino Transf (AST/SGOT) 148 U/L (15-37) H Alanine Aminotransferase (ALT/SGPT) 207 U/L (12-78) H Alkaline Phosphatase 96 U/L (46-116) Total Protein 5.7 G/DL (6.4-8.2) L Albumin 2.7 G/DL (3.4-5.0) L Globulin 3.0 g/dL Albumin/Globulin Ratio 0.9 (1.0-2.7) L Carcinoembryonic Antigen Pending Arterial Blood pH 7.423 (7.350-7.450) Arterial Blood Partial Pressure CO2 28.0 mmHg (35.0-45.0) L Arterial Blood Partial Pressure O2 87.4 mmHg (75.0-100.0) Arterial Blood HCO3 17.9 mmol/L (22.0-26.0) *L Arterial Blood Oxygen Saturation 97.9 % (95-100) Arterial Blood Base Excess -5.5 (-2-2) L Abdi Test Positive Erythrocyte Sedimentation Rate 42 MM/HR (0-20) H Reticulocyte Count 0.7 % (0.5-2.0) Prothrombin Time 12.5 SEC (9.30-11.50) H Prothromb Time International Ratio 1.1 (0.9-1.1) Activated Partial Thromboplast Time 21 SEC (23-33) L Iron Level 21 ug/dL (50-175) L Total Iron Binding Capacity 294 ug/dL (250-450) Percent Iron Saturation 7 % (15-50) L Unsaturated Iron Binding 273 ug/dL (112-346) Lactate Dehydrogenase 282 U/L (81-234) H Vitamin B12 Level 418 PG/ML (193-986) Folate 6.0 NG/ML (8.6-58.9) L Height (Feet): 5 Height (Inches): 4.00 Weight (Pounds): 131 Medications Current Medications Medications (Trade) Dose Ordered Sig/Azeb Route PRN Reason Start Time Stop Time Status Last Admin Dose Admin Acetaminophen (Tylenol) 650 mg Q4H PRN ORAL FEVER 08/03/20 08:30 09/02/20 08:29 08/04/20 00:22 Albuterol/ Ipratropium (Albuterol/ Ipratropium) 3 ml EVERY 4 HOURS PRN HHN Shortness of Breath 08/03/20 08:30 08/08/20 08:29 08/04/20 09:27 Alprazolam (Xanax) 0.25 mg Q6H PRN ORAL For Anxiety 08/03/20 21:30 08/10/20 21:29 08/04/20 08:33 Azithromycin 250 mg/Dextrose 275 ml @ 275 mls/hr Q24HRS IV 08/03/20 10:00 08/08/20 09:59 08/04/20 10:24 Ceftriaxone Sodium 1 gm/ Dextrose 55 ml @ 110 mls/hr Q24H IVPB 08/03/20 22:00 08/10/20 21:59 08/03/20 22:24 Dextrose (Dextrose 50%) 25 ml Q30M PRN IV Hypoglycemia 08/03/20 08:30 11/01/20 08:29 Dextrose (Dextrose 50%) 50 ml Q30M PRN IV Hypoglycemia 08/03/20 08:30 11/01/20 08:29 Heparin Sodium (Porcine) (Heparin 5000 units/ml) 5,000 units EVERY 12 HOURS SUBQ 08/03/20 10:00 09/17/20 09:59 08/03/20 10:41 Metoclopramide HCl (Reglan) 10 mg Q6H PRN IVP Nausea & Vomiting 08/04/20 07:30 09/03/20 07:29 08/04/20 07:53 Morphine Sulfate (Morphine Sulfate) 2 mg EVERY 2 HOURS PRN IVP For Pain 08/04/20 01:30 08/11/20 01:29 08/04/20 13:10 Ondansetron HCl (Zofran) 4 mg Q4H PRN IVP Nausea & Vomiting 08/04/20 09:00 09/03/20 08:59 Pantoprazole (Protonix) 40 mg EVERY 12 HOURS IVP 08/04/20 09:00 09/03/20 08:59 08/04/20 08:09 Polyethylene Glycol (Miralax) 17 gm DAILYPRN PRN ORAL Constipation 08/03/20 08:30 09/02/20 08:29 Promethazine HCl/ Codeine (Phenergan with Codeine) 5 ml EVERY 6 HOURS PRN ORAL cough 08/03/20 08:30 09/02/20 08:29 08/04/20 08:09 Assessment/Plan Assessment/Plan: Abx: Ceftriaxone 08/03- Cefepime x1 08/03 Azithromycin x1 08/03 Assessment: SIRS vs Sepsis Diarrhea- r/o Cdiff Low grade fever x1 Leukocytosis, improving -CXR: no acute process u/a neg GEORGETTE, improving Coffee ground emesis Acute encephalopathy -CT head: no acute process Elevated LFts Recent aspiration pNA Plan: -Dc empiric Ceftriaxone #2 -Start empiric PO Vancomycin 125mg qid -check Cdiff, stool cx -f/u cx -Monitor CBC/CMP, temperatures -Abd US -HIV ab screen, Acute hep panel -GI f/u Thank you for consulting [facility]. Will continue to follow along with you. Discussed with Jazmín Boggs M.D. Aug 04, 2020 17:48
--- NOTE | 2020-08-04 18:01 | History and Physical Report ---
DATE OF ADMISSION: 08/03/2020 CHIEF COMPLAINT: Patient is a 44-year-old female, who presents with chief complaint of vomiting blood. HISTORY OF PRESENT ILLNESS: Patient states she was in her usual state of health until 08/03/2020. Patient vomited what sounds like coffee-grounds emesis. Patient presented to [place] emergency room. Patient was admitted with upper gastrointestinal hemorrhage. REVIEW OF SYSTEMS: CONSTITUTIONAL: Patient denies weight loss or weight gain. Patient denies fevers or chills. HEENT: Patient denies ear or throat pain. Patient denies headache. CARDIOVASCULAR: Patient complains of chest pain. Patient denies palpitations. ABDOMEN: Patient complains of coffee-ground emesis as above. Patient denies diarrhea or constipation. GENITOURINARY: Patient denies dysuria or increased frequency of urination. NEUROMUSCULAR: Patient denies seizures or generalized weakness. PAST MEDICAL HISTORY: Patient denies. PAST SURGICAL HISTORY: Patient denies. CURRENT MEDICATIONS: Patient denies. ALLERGIES: No known drug allergies. SOCIAL HISTORY: Patient is . Patient denies tobacco or alcohol use. PHYSICAL EXAMINATION: VITAL SIGNS: Temperature 97.0, respirations 16, pulse 119, blood pressure 121/79. GENERAL: Patient is well-developed, well-nourished, female, in no apparent distress. HEENT: Eyes, pupils equal and responsive to light and accommodation. Extraocular movements are intact. NECK: Supple without lymphadenopathy. CHEST: Decreased breath sounds bilateral bases. Otherwise, without wheezes or rales. CARDIOVASCULAR: Regular rhythm and rate. S1, S2 are normal without murmurs, rubs, or gallops. ABDOMEN: Soft, nontender, nondistended. Positive bowel sounds. No evidence of hepatosplenomegaly. Currently, no rebound or guarding noted. EXTREMITIES: Negative for clubbing, cyanosis, or edema. RECTAL: Not performed. GENITOURINARY: Not performed. NEUROLOGIC: Cranial nerves II through XII are grossly intact without focal deficits. Motor strength is 5/5 bilaterally. Deep tendon reflexes are 2+ plantar. LABORATORY STUDIES: WBC 11.3, hemoglobin 11.3, hematocrit 35.2, platelets 413,000. Sodium 140, potassium 4.4, chloride 107, CO2 20, BUN 18, creatinine 1.5, glucose 253. ASSESSMENT: This is a 44-year-old female. 1. Upper gastrointestinal hemorrhage. 2. Respiratory distress. TREATMENT: 1. Upper gastrointestinal hemorrhage. A Gastroenterology consultation has been obtained with Dr. Timothy Bhakta. Follow recommendations of Gastroenterology. Patient has been placed on intravenous Protonix. 2. Respiratory distress. Patient became acutely short of breath in the emergency room. Patient is currently tolerating a Venturi mask. Brent Lynn M.D. DR: ÁNGELA JOB#: [id number] CC:
--- NOTE | 2020-08-04 19:13 | NUR ---
NURSE HAND-OFF REPORT: Important Events on Shift:[pain management; safety measure; kept comfortable] Patient Status: [stables] Diet: [CLEAR] Pending Orders: [LABS; STOOL COLLECTION; INF A/B ] Pending Results/Labs:[IN AM] Pending MD notification:[] Latest Vital Signs: Temperature 98.2 , Pulse 94 , B/P 149 /90 , Respiratory Rate 20 , O2 SAT 97 , Room Air, O2 Flow Rate . Vital Sign Comment: [] EKG Rhythm: Sinus Rhythm Rhythm change?: N MD Notified?: - MD Response: Latest Lino Fall Score: 35 Fall Risk: Medium Risk Safety Measures: Call light Within Reach, Bed Alarm Zone 1, Side Rails Side Rails x2, Bed position Low and Locked. Fall Precautions: Yellow Socks Yellow Gown Door Sign Patient Fall Education Report given to [GHO].
--- NOTE | 2020-08-04 19:20 | NUR ---
NURSE NOTES: Receive a report from OVIDIO Lawson. Round is done. Pt is awake and alert. No acute distress noted. No SOB. Complain for left shoulder pain. X-ray pt took earlier is no fx noted. Will provide prn pain medication as ordered. Call light within reach. Will continue to monitor.
--- NOTE | 2020-08-04 20:30 | NUR ---
NURSE NOTES: Made aware of pt for new orders of Influenza A& B and stool exam including modified isolation. Provide hat in the toilet and collect Influenza via nare. Pain on left shoulder decreased. Femoral line on right inguinal site intact and clean. Will continue to monitor.
[2020-08-04] MEDS: Vancomycin oral 125mg/2.5ml ORAL SCH (21:15)
--- NOTE | 2020-08-04 21:30 | NUR ---
NURSE NOTES: Move pt room from 220-1 to 212-1 with her belongings.
[2020-08-05] VITALS: BP 156/95
[2020-08-05] MEDS: Morphine Sulfate 2mg/ml Inj(IV/IM USE ONLY) IVP PRN ×8 (01:03→20:55)
--- NOTE | 2020-08-05 02:25 | NUR ---
NURSE NOTES: Pt had regular form of BM, small amount, saying smell was not good with urine. Voiding is fine but a little painful after removal morales catheter yesterday. Stool-culture and C.diff went down to lab. Will continue to monitor.
[2020-08-05] MEDS: ALPRAZolam 0.25mg tab ORAL PRN ×4 (03:24→22:52)
[2020-08-05 04:00] VITALS: BP 150/95
--- NOTE | 2020-08-05 06:50 | NUR ---
NURSE HAND-OFF REPORT: Important Events on Shift: pain medication x4 for abdomen/left shoulder/ generalized pain. BMx 2(one time normal, one time-loose) Patient Status: [] Diet: [clear liquid diet] Pending Orders: [] Pending Results/Labs:[] Pending MD notification:[] Latest Vital Signs: Temperature 98.1 , Pulse 85 , B/P 150 /95 , Respiratory Rate 20 , O2 SAT 98 , Room Air, O2 Flow Rate . Vital Sign Comment: [] EKG Rhythm: Sinus Rhythm Rhythm change?: N MD Notified?: N - MD Response: Latest Lino Fall Score: 35 Fall Risk: Medium Risk Safety Measures: Call light Within Reach, Bed Alarm Zone 1, Side Rails Side Rails x2, Bed position Low and Locked. Fall Precautions: Door Sign Patient Fall Education
--- NOTE | 2020-08-05 07:12 | NUR ---
NURSE NOTES: Receive a report from BREA Hoover.Pt is A/O x4 and verbally respojnsive. Pain noted thoroughout her whole body but pain medication due in an hour and educated pt regarding when pain medication is due. No SOB or acute distress noted. Will provide prn pain medication as ordered. Pt is ambulatory with steady gait to and from the bathroom. Call light within reach. Will continue to monitor.
--- NOTE | 2020-08-05 07:30 | NUR ---
HAND-OFF: Report given to BREA More. Round is done.
[2020-08-05 07:51] LABS: BASOPHILS % (AUTO) 0.2 % (0.0-2.0); EOSINOPHILS % (AUTO) 0.1 % (0.0-3.0); HEMATOCRIT 29.9 % (37.0-47.0); HEMOGLOBIN 9.6 G/DL (12.0-16.0); LYMPHOCYTES % (AUTO) 12.7 % (20.0-45.0); MEAN CORPUSCULAR VOLUME 94 FL (80-99); MONOCYTES % (AUTO) 4.1 % (1.0-10.0); PLATELET COUNT 320 K/UL (150-450); RED BLOOD COUNT 3.19 M/UL (4.20-5.40); RED CELL DISTRIBUTION WIDTH 17.1 % (11.6-14.8); WHITE BLOOD COUNT 17.4 K/UL (4.8-10.8)
[2020-08-05 08:00] VITALS: BP 157/93
--- NOTE | 2020-08-05 08:18 | General Progress Note ---
Subjective ROS Limited/Unobtainable: Yes Allergies: Coded Allergies: No Known Allergies (Unverified , 08/03/20) Objective Last 24 Hour Vital Signs Date Time Temp Pulse Resp B/P (MAP) Pulse Ox O2 Delivery O2 Flow Rate FiO2 08/05/20 04:00 85 08/05/20 04:00 98.1 81 20 150/95 (113) 98 08/05/20 00:00 79 08/05/20 00:00 98.6 86 20 156/95 (115) 98 08/04/20 21:00 Room Air 08/04/20 20:00 99.1 85 20 150/84 (106) 96 08/04/20 20:00 86 08/04/20 18:12 98.2 08/04/20 17:45 94 149/90 (109) 08/04/20 16:05 98.2 94 20 142/92 (109) 97 08/04/20 13:40 98.4 08/04/20 12:00 Room Air 08/04/20 12:00 98.4 92 21 149/69 (95) 98 08/04/20 10:15 98.2 08/04/20 09:30 76 20 100 Room Air 21 67 22 97 08/04/20 09:19 98.2 101 21 139/82 (101) 98 08/04/20 09:18 98.2 101 21 139/82 (101) 98 Intake and Output 08/04/20 08/05/20 19:00 07:00 Intake Total 755 ml 450 ml Output Total 250 ml Balance 505 ml 450 ml Intake Oral 480 ml 450 ml IV Total 275 ml Output Urine Total 250 ml # Voids 63 2 # Bowel Movements 1 Laboratory Tests 08/04/20 08:21: Arterial Blood pH 7.423, Arterial Blood Partial Pressure CO2 28.0L, Arterial Blood Partial Pressure O2 87.4, Arterial Blood HCO3 17.9*L, Arterial Blood Oxygen Saturation 97.9, Arterial Blood Base Excess -5.5L, Abdi Test Positive 08/04/20 10:00: White Blood Count 19.8H, Red Blood Count 3.24L, Hemoglobin 9.9L, Hematocrit 29.6L, Mean Corpuscular Volume 91, Mean Corpuscular Hemoglobin 30.4, Mean Corpuscular Hemoglobin Concent 33.3, Red Cell Distribution Width 17.8H, Platelet Count 296, Mean Platelet Volume 6.0L, Neutrophils (%) (Auto) , Lymphocytes (%) (Auto) , Monocytes (%) (Auto) , Eosinophils (%) (Auto) , Basophils (%) (Auto) , Differential Total Cells Counted 100, Neutrophils % (Manual) 95H, Lymphocytes % (Manual) 3L, Monocytes % (Manual) 2, Eosinophils % (Manual) 0, Basophils % (Manual) 0, Band Neutrophils 0, Platelet Estimate Adequate, Platelet Morphology Normal, Hypochromasia 1+, Anisocytosis 1+, Erythrocyte Sedimentation Rate 42H, Reticulocyte Count 0.7, Prothrombin Time 12.5H, Prothromb Time International Ratio 1.1, Activated Partial Thromboplast Time 21L, Iron Level 21L, Total Iron Binding Capacity 294, Percent Iron Saturation 7L, Unsaturated Iron Binding 273, Lactate Dehydrogenase 282H, Vitamin B12 Level 418, Folate 6.0L 08/05/20 04:00: White Blood Count 17.4H, Red Blood Count 3.19L, Hemoglobin 9.6L, Hematocrit 29.9L, Mean Corpuscular Volume 94, Mean Corpuscular Hemoglobin 30.0, Mean Corpuscular Hemoglobin Concent 32.0, Red Cell Distribution Width 17.1H, Platelet Count 320, Mean Platelet Volume 6.2L, Neutrophils (%) (Auto) 83.0H, Lymphocytes (%) (Auto) 12.7L, Monocytes (%) (Auto) 4.1, Eosinophils (%) (Auto) 0.1, Basophils (%) (Auto) 0.2, Prothrombin Time 10.8, Prothromb Time International Ratio 1.0, Activated Partial Thromboplast Time 25, Iron Level [Pending], Unsaturated Iron Binding [Pending], Sodium Level [Pending], Potassium Level [Pending], Chloride Level [Pending], Carbon Dioxide Level [Pending], Blood Urea Nitrogen [Pending], Creatinine [Pending], Estimat Glomerular Filtration Rate [Pending], Glucose Level [Pending], Calcium Level [Pending], Total Bilirubin [Pending], Aspartate Amino Transf (AST/SGOT) [Pending], Alanine Aminotransferase (ALT/SGPT) [Pending], Alkaline Phosphatase [Pending], Total Protein [Pending], Albumin [Pending], Globulin [Pending], Amylase Level [Pending], Hepatitis A IgM Antibody [Pending], Hepatitis B Surface Antigen [Pending], Hepatitis B Core IgM Antibody [Pending], Hepatitis C Antibody [Pending], HIV (1&2) Antibody Rapid [Pending] Height (Feet): 5 Height (Inches): 4.00 Weight (Pounds): 131 General Appearance: no apparent distress EENT: PERRL/EOMI Neck: supple Cardiovascular: normal rate Respiratory/Chest: decreased breath sounds Abdomen: hypoactive bowel sounds Extremities: non-tender Assessment/Plan Assessment/Plan: ? GIB polysub abuse anemia elevated LFTS iron def anemia ppi>>> will change to po neg stool ob iv iron EGD in am advance diet repeat labs hepatitis panel Timothy Bhakta MD Aug 05, 2020 08:18
[2020-08-05 08:28] LABS: ALANINE AMINOTRANSFERASE 146 U/L (12-78); ALBUMIN 2.9 G/DL (3.4-5.0); ALBUMIN/GLOBULIN RATIO 0.9 (1.0-2.7); ALKALINE PHOSPHATASE 91 U/L (46-116); AMYLASE 70 U/L (25-115); ANION GAP 7 mmol/L (5-15); ASPARTATE AMINO TRANSFERASE 64 U/L (15-37); BILIRUBIN,TOTAL 0.3 MG/DL (0.2-1.0); BLOOD UREA NITROGEN 7 mg/dL (7-18); CALCIUM 7.7 MG/DL (8.5-10.1); CARBON DIOXIDE 26 MMOL/L (21-32); CHLORIDE 106 MMOL/L (98-107); CREATININE 0.6 MG/DL (0.55-1.30); POTASSIUM 3.6 MMOL/L (3.5-5.1); SODIUM 139 MMOL/L (136-145)
[2020-08-05] MEDS: Heparin 5000 units/ml inj SUBQ SCH ×2 (08:37→21:00)
[2020-08-05] MEDS: Vancomycin oral 125mg/2.5ml ORAL SCH ×4 (08:37→21:45)
[2020-08-05 08:59] LABS: % IRON SATURATION 15 % (15-50); IRON 46 ug/dL (50-175); TOTAL IRON BINDING CAPACITY 309 ug/dL (250-450)
[2020-08-05] MEDS ORDERED: Tubing IV Secondary IV ONE ×2 (09:01→09:23)
[2020-08-05] MEDS ORDERED: NS 275ml ONE ×2 (09:01→09:23)
[2020-08-05 12:00] VITALS: BP 147/82
--- NOTE | 2020-08-05 13:25 | Internal Med Progress Note ---
Subjective Date of Service: Aug 05, 2020 Physician Name Brent Lynn Attending Physician Aric Charles MD Current Medications Medications (Trade) Dose Ordered Sig/Azeb Route PRN Reason Start Time Stop Time Status Last Admin Dose Admin Acetaminophen (Tylenol) 650 mg Q4H PRN ORAL FEVER 08/03/20 08:30 09/02/20 08:29 08/04/20 00:22 Albuterol/ Ipratropium (Albuterol/ Ipratropium) 3 ml EVERY 4 HOURS PRN HHN Shortness of Breath 08/03/20 08:30 08/08/20 08:29 08/04/20 09:27 Alprazolam (Xanax) 0.25 mg Q6H PRN ORAL For Anxiety 08/03/20 21:30 08/10/20 21:29 08/05/20 09:58 Dextrose (Dextrose 50%) 25 ml Q30M PRN IV Hypoglycemia 08/03/20 08:30 11/01/20 08:29 Dextrose (Dextrose 50%) 50 ml Q30M PRN IV Hypoglycemia 08/03/20 08:30 11/01/20 08:29 Heparin Sodium (Porcine) (Heparin 5000 units/ml) 5,000 units EVERY 12 HOURS SUBQ 08/03/20 10:00 09/17/20 09:59 08/05/20 08:37 Iron Sucrose 100 mg/Sodium Chloride 60 ml @ 240 mls/hr BEDTIME IVPB 08/05/20 21:00 08/09/20 21:14 Metoclopramide HCl (Reglan) 10 mg Q6H PRN IVP Nausea & Vomiting 08/04/20 07:30 09/03/20 07:29 08/04/20 07:53 Morphine Sulfate (Morphine Sulfate) 2 mg EVERY 2 HOURS PRN IVP For Pain 08/04/20 01:30 08/11/20 01:29 08/05/20 11:58 Ondansetron HCl (Zofran) 4 mg Q4H PRN IVP Nausea & Vomiting 08/04/20 09:00 09/03/20 08:59 Pantoprazole (Protonix) 40 mg EVERY 12 HOURS ORAL 08/05/20 09:00 09/04/20 08:59 08/05/20 08:36 Polyethylene Glycol (Miralax) 17 gm DAILYPRN PRN ORAL Constipation 08/03/20 08:30 09/02/20 08:29 Promethazine HCl/ Codeine (Phenergan with Codeine) 5 ml EVERY 6 HOURS PRN ORAL cough 08/03/20 08:30 09/02/20 08:29 08/04/20 08:09 Vancomycin HCl (Firvanq) 125 mg FOUR TIMES A DAY ORAL 08/04/20 21:00 08/11/20 20:59 08/05/20 12:52 Allergies: Coded Allergies: No Known Allergies (Unverified , 08/03/20) ROS Limited/Unobtainable: No Constitutional: Reports: no symptoms HEENT: Reports: no symptoms Cardiovascular: Reports: no symptoms Respiratory: Reports: no symptoms Gastrointestinal/Abdominal: Reports: black stools, nausea, vomiting Genitourinary: Reports: no symptoms Neurologic/Psychiatric: Reports: no symptoms Subjective 44 Y F admitted with Upper GI bleed. Cover for Int [facility] - Dr Charles. Endoscopy scheduled for 08/06/20 Objective Last Vital Signs Date Time Temp Pulse Resp B/P (MAP) Pulse Ox O2 Delivery O2 Flow Rate FiO2 08/05/20 12:00 99.2 94 18 147/82 (103) 98 08/05/20 09:00 Room Air 08/04/20 09:30 21 08/04/20 04:00 Laboratory Tests Test 08/05/20 04:00 08/05/20 10:03 White Blood Count 17.4 K/UL (4.8-10.8) H Red Blood Count 3.19 M/UL (4.20-5.40) L Hemoglobin 9.6 G/DL (12.0-16.0) L Hematocrit 29.9 % (37.0-47.0) L Mean Corpuscular Volume 94 FL (80-99) Mean Corpuscular Hemoglobin 30.0 PG (27.0-31.0) Mean Corpuscular Hemoglobin Concent 32.0 G/DL (32.0-36.0) Red Cell Distribution Width 17.1 % (11.6-14.8) H Platelet Count 320 K/UL (150-450) Mean Platelet Volume 6.2 FL (6.5-10.1) L Neutrophils (%) (Auto) 83.0 % (45.0-75.0) H Lymphocytes (%) (Auto) 12.7 % (20.0-45.0) L Monocytes (%) (Auto) 4.1 % (1.0-10.0) Eosinophils (%) (Auto) 0.1 % (0.0-3.0) Basophils (%) (Auto) 0.2 % (0.0-2.0) Prothrombin Time 10.8 SEC (9.30-11.50) Prothromb Time International Ratio 1.0 (0.9-1.1) Activated Partial Thromboplast Time 25 SEC (23-33) Sodium Level 139 MMOL/L (136-145) Potassium Level 3.6 MMOL/L (3.5-5.1) Chloride Level 106 MMOL/L (98-107) Carbon Dioxide Level 26 MMOL/L (21-32) Anion Gap 7 mmol/L (5-15) Blood Urea Nitrogen 7 mg/dL (7-18) Creatinine 0.6 MG/DL (0.55-1.30) Estimat Glomerular Filtration Rate > 60 mL/min (>60) Glucose Level 109 MG/DL (74-106) H Calcium Level 7.7 MG/DL (8.5-10.1) L Iron Level 46 ug/dL (50-175) L Total Iron Binding Capacity 309 ug/dL (250-450) Percent Iron Saturation 15 % (15-50) Unsaturated Iron Binding 263 ug/dL (112-346) Total Bilirubin 0.3 MG/DL (0.2-1.0) Aspartate Amino Transf (AST/SGOT) 64 U/L (15-37) H Alanine Aminotransferase (ALT/SGPT) 146 U/L (12-78) H Alkaline Phosphatase 91 U/L (46-116) Total Protein 6.1 G/DL (6.4-8.2) L Albumin 2.9 G/DL (3.4-5.0) L Globulin 3.2 g/dL Albumin/Globulin Ratio 0.9 (1.0-2.7) L Amylase Level 70 U/L (25-115) Hepatitis A IgM Antibody Pending Hepatitis B Surface Antigen Pending Hepatitis B Core IgM Antibody Pending Hepatitis C Antibody Pending HIV (1&2) Antibody Rapid Negative (NEGATIVE) Urine Opiates Screen Positive (NEGATIVE) H Urine Barbiturates Screen Negative (NEGATIVE) Phencyclidine (PCP) Screen Negative (NEGATIVE) Urine Amphetamines Screen Negative (NEGATIVE) Urine Benzodiazepines Screen Positive (NEGATIVE) H Urine Cocaine Screen Positive (NEGATIVE) H Urine Marijuana (THC) Screen Positive (NEGATIVE) H Microbiology Date/Time Source Procedure Growth Status 08/05/20 02:10 Stool Stool Culture Pending Resulted 08/05/20 02:10 Stool Clostridium difficile Toxin Assay - Final Resulted 08/04/20 20:20 Nasopharynx - Final Complete 08/04/20 20:20 Nasopharynx - Final Complete 08/03/20 03:47 Nasopharynx SARS-CoV-2 RdRp Gene Assay - Final Complete 08/03/20 03:34 Straight Cath Urine Culture - Final NO GROWTH AFTER 48 HOURS Complete 08/03/20 01:25 Blood Blood Culture - Preliminary NO GROWTH AFTER 24 HOURS Resulted 08/03/20 01:10 Blood Blood Culture - Preliminary NO GROWTH AFTER 24 HOURS Resulted Intake and Output 08/04/20 08/05/20 19:00 07:00 Intake Total 755 ml 450 ml Output Total 250 ml Balance 505 ml 450 ml Intake Oral 480 ml 450 ml IV Total 275 ml Output Urine Total 250 ml # Voids 63 2 # Bowel Movements 1 Objective PHYSICAL EXAMINATION: GENERAL: Patient is well-developed, well-nourished, female, in no apparent distress. HEENT: Eyes, pupils equal and responsive to light and accommodation. Extraocular movements are intact. NECK: Supple without lymphadenopathy. CHEST: Room air. Decreased breath sounds bilateral bases. Otherwise, without wheezes or rales. CARDIOVASCULAR: Regular rhythm and rate. S1, S2 are normal without murmurs, rubs, or gallops. ABDOMEN: Soft, nontender, nondistended. Positive bowel sounds. No evidence of hepatosplenomegaly. Currently, no rebound or guarding noted. EXTREMITIES: Negative for clubbing, cyanosis, or edema. RECTAL: Not performed. GENITOURINARY: Not performed. NEUROLOGIC: Cranial nerves II through XII are grossly intact without focal deficits. Motor strength is 5/5 bilaterally. Deep tendon reflexes are 2+ bilat Assessment/Plan Assessment/Plan ASSESSMENT: This is a 44-year-old female. 1. Upper gastrointestinal hemorrhage. 2. Respiratory distress. TREATMENT: 1. Upper gastrointestinal hemorrhage. Gastroenterology = Dr. Timothy Bhakta. Await endoscopy on 08/06/20. Continue Protonix. 2. Respiratory distress. Pulmonary=Dr Lechuga. Currently on room air Brent Lynn MD Aug 05, 2020 13:25
--- NOTE | 2020-08-05 14:00 | Diagnostic Imaging Report ---
EXAM: US Abdomen Complete CLINICAL HISTORY: ABD PAIN TECHNIQUE: Real-time ultrasound of the abdomen with image documentation. COMPARISON: None FINDINGS: Liver: Liver measures 16.0 cm. No focal lesion. No intrahepatic bile duct dilation. Gallbladder: Severe gallbladder wall thickening and edema. The gallbladder is underdistended. No definite gallstones or sludge. However, sonographic Foster's sign is reportedly positive. Findings may represent acute cholecystitis. Common bile duct: Upper limits of normal common bile duct measuring 5. 7 mm. No choledocholithiasis identified. No dilation. Pancreas: Visualized portions of the pancreas are grossly unremarkable. Kidneys: Right kidney measures 10.3 cm in length. No hydronephrosis or stone. Left kidney measures 9.2 cm in length. No hydronephrosis or stone. Spleen: Spleen measures 8.5 cm. Aorta: Visualized portions of the aorta are grossly unremarkable. Inferior vena cava: Visualized portions of the IVC are grossly unremarkable. Other vasculature: Patent main portal vein with normal direction of flow. Pleural space: Right pleural effusion. IMPRESSION: 1. Right pleural effusion. 2. Severe gallbladder wall thickening and edema. The gallbladder is underdistended. No definite gallstones or sludge. However, sonographic Foster's sign is reportedly positive. Findings may represent acute cholecystitis.
[2020-08-05] MEDS: Albuterol/Ipratropium 3ml neb HHN PRN (15:10)
[2020-08-05 16:00] VITALS: BP 150/89
--- NOTE | 2020-08-05 19:25 | NUR ---
NURSE HAND-OFF REPORT: Important Events on Shift: EGD tomorrow NPO come midnight. Patient Status: Stable Diet: Regular Pending Orders: Pending Results/Labs: Pending MD notification: Latest Vital Signs: Temperature 99.1 , Pulse 76 , B/P 150 /89 , Respiratory Rate 18 , O2 SAT 98 , Room Air, O2 Flow Rate . Vital Sign Comment: EKG Rhythm: Sinus Rhythm Rhythm change?: N MD Notified?: N - MD Response: Latest Lino Fall Score: 35 Fall Risk: Medium Risk Safety Measures: Call light Within Reach, Bed Alarm Zone 1, Side Rails Side Rails x2, Bed position Low and Locked. Fall Precautions: Door Sign Patient Fall Education Report given to BRAE Hoover.
--- NOTE | 2020-08-05 19:30 | NUR ---
NURSE NOTES: Receive a report from BREA More. Pt is awake and alert. No nausea/vomiting noted. No BM since early this morning. No difficulty urination. Pt is aware of EGD tomorrow morning. C-line on right femoral intact. Skin intact. Call light within reach. Will continue to monitor.
[2020-08-05 20:00] VITALS: BP 152/87
[2020-08-05] MEDS ORDERED: Iron Sucrose 100 MG in NS 55 ML IVPB SCH (21:00)
--- NOTE | 2020-08-05 21:37 | Cardiology Progress Note ---
Assessment/Plan Assessment/Plan wheezing, most likely COPD exacerbation, the patient has indications for cardiac work up, considering her pulmonary hypertension. It should be done after she improves her COPD Subjective Subjective The patient is still very short of breath. She is coughing and wheezing, denies orthopnea Objective Last 24 Hour Vital Signs Date Time Temp Pulse Resp B/P (MAP) Pulse Ox O2 Delivery O2 Flow Rate FiO2 08/05/20 16:00 99.1 76 18 150/89 (109) 98 08/05/20 16:00 82 08/05/20 15:10 90 20 100 Room Air 21 89 22 98 08/05/20 12:00 99.2 94 18 147/82 (103) 98 08/05/20 12:00 81 08/05/20 09:00 Room Air 08/05/20 08:00 76 08/05/20 08:00 99.4 76 18 157/93 (114) 96 08/05/20 04:00 85 08/05/20 04:00 98.1 81 20 150/95 (113) 98 08/05/20 00:00 79 08/05/20 00:00 98.6 86 20 156/95 (115) 98 General Appearance: mild distress EENT: PERRL/EOMI Neck: no JVD Rhythm: NSR Cardiovascular: regular rhythm Respiratory/Chest: expiratory wheezing, inspiratory wheezing Abdomen: soft Extremities: normal capillary refill Intake and Output 08/04/20 08/05/20 19:00 07:00 Intake Total 755 ml 450 ml Output Total 250 ml Balance 505 ml 450 ml Intake Oral 480 ml 450 ml IV Total 275 ml Output Urine Total 250 ml # Voids 63 2 # Bowel Movements 1 Laboratory Tests Test 08/05/20 04:00 08/05/20 10:03 08/05/20 21:10 White Blood Count 17.4 K/UL (4.8-10.8) H Red Blood Count 3.19 M/UL (4.20-5.40) L Hemoglobin 9.6 G/DL (12.0-16.0) L Hematocrit 29.9 % (37.0-47.0) L Mean Corpuscular Volume 94 FL (80-99) Mean Corpuscular Hemoglobin 30.0 PG (27.0-31.0) Mean Corpuscular Hemoglobin Concent 32.0 G/DL (32.0-36.0) Red Cell Distribution Width 17.1 % (11.6-14.8) H Platelet Count 320 K/UL (150-450) Mean Platelet Volume 6.2 FL (6.5-10.1) L Neutrophils (%) (Auto) 83.0 % (45.0-75.0) H Lymphocytes (%) (Auto) 12.7 % (20.0-45.0) L Monocytes (%) (Auto) 4.1 % (1.0-10.0) Eosinophils (%) (Auto) 0.1 % (0.0-3.0) Basophils (%) (Auto) 0.2 % (0.0-2.0) Prothrombin Time 10.8 SEC (9.30-11.50) Prothromb Time International Ratio 1.0 (0.9-1.1) Activated Partial Thromboplast Time 25 SEC (23-33) Sodium Level 139 MMOL/L (136-145) Potassium Level 3.6 MMOL/L (3.5-5.1) Chloride Level 106 MMOL/L (98-107) Carbon Dioxide Level 26 MMOL/L (21-32) Anion Gap 7 mmol/L (5-15) Blood Urea Nitrogen 7 mg/dL (7-18) Creatinine 0.6 MG/DL (0.55-1.30) Estimat Glomerular Filtration Rate > 60 mL/min (>60) Glucose Level 109 MG/DL (74-106) H Calcium Level 7.7 MG/DL (8.5-10.1) L Iron Level 46 ug/dL (50-175) L Total Iron Binding Capacity 309 ug/dL (250-450) Percent Iron Saturation 15 % (15-50) Unsaturated Iron Binding 263 ug/dL (112-346) Total Bilirubin 0.3 MG/DL (0.2-1.0) Aspartate Amino Transf (AST/SGOT) 64 U/L (15-37) H Alanine Aminotransferase (ALT/SGPT) 146 U/L (12-78) H Alkaline Phosphatase 91 U/L (46-116) Total Protein 6.1 G/DL (6.4-8.2) L Albumin 2.9 G/DL (3.4-5.0) L Globulin 3.2 g/dL Albumin/Globulin Ratio 0.9 (1.0-2.7) L Amylase Level 70 U/L (25-115) Hepatitis A IgM Antibody Pending Hepatitis B Surface Antigen Pending Hepatitis B Core IgM Antibody Pending Hepatitis C Antibody Pending HIV (1&2) Antibody Rapid Negative (NEGATIVE) Urine Opiates Screen Positive (NEGATIVE) H Urine Barbiturates Screen Negative (NEGATIVE) Phencyclidine (PCP) Screen Negative (NEGATIVE) Urine Amphetamines Screen Negative (NEGATIVE) Urine Benzodiazepines Screen Positive (NEGATIVE) H Urine Cocaine Screen Positive (NEGATIVE) H Urine Marijuana (THC) Screen Positive (NEGATIVE) H POC Whole Blood Glucose Pending Microbiology Date/Time Source Procedure Growth Status 08/05/20 02:10 Stool Stool Culture Pending Resulted 08/05/20 02:10 Stool Clostridium difficile Toxin Assay - Final Resulted 08/04/20 20:20 Nasopharynx - Final Complete 08/04/20 20:20 Nasopharynx - Final Complete 08/03/20 03:47 Nasopharynx SARS-CoV-2 RdRp Gene Assay - Final Complete 08/03/20 03:34 Straight Cath Urine Culture - Final NO GROWTH AFTER 48 HOURS Complete 08/03/20 01:25 Blood Blood Culture - Preliminary NO GROWTH AFTER 24 HOURS Resulted 08/03/20 01:10 Blood Blood Culture - Preliminary NO GROWTH AFTER 24 HOURS Resulted Mariela Kraus MD Aug 05, 2020 21:37
[2020-08-06] VITALS (9 sets, daily range): BP systolic 144–165; BP diastolic 80–98
--- NOTE | 2020-08-06 01:00 | NUR ---
NURSE NOTES: Pt says she could not wait to bathroom for BM and had blood in it, which pt flushed after done. No dizziness or nausea noted. VSS are stable. Provide hats to collect for next BM in the bathroom. CN made aware. Will continue to monitor.
[2020-08-06] MEDS: Morphine Sulfate 2mg/ml Inj(IV/IM USE ONLY) IVP PRN ×5 (01:04→12:12)
--- NOTE | 2020-08-06 07:30 | NUR ---
NURSE HAND-OFF REPORT: Important Events on Shift: Pain control x4, BMx1 with blood by pt's remark, EGD planning Patient Status: [] Diet: [NPO] Pending Orders: [] Pending Results/Labs:[] Pending MD notification:[] Latest Vital Signs: Temperature 97.7 , Pulse 71 , B/P 152 /84 , Respiratory Rate 18 , O2 SAT 96 , Room Air, O2 Flow Rate . Vital Sign Comment: [] EKG Rhythm: Sinus Rhythm Rhythm change?: N MD Notified?: N - MD Response: Latest Lino Fall Score: 35 Fall Risk: Medium Risk Safety Measures: Call light Within Reach, Bed Alarm Zone 1, Side Rails Side Rails x2, Bed position Low and Locked. Fall Precautions: Door Sign Patient Fall Education Report given to BREA Almendarez. Round is done.
[2020-08-06 07:44] LABS: ALANINE AMINOTRANSFERASE 107 U/L (12-78); ALBUMIN 2.8 G/DL (3.4-5.0); ALBUMIN/GLOBULIN RATIO 0.8 (1.0-2.7); ALKALINE PHOSPHATASE 84 U/L (46-116); ANION GAP 8 mmol/L (5-15); ASPARTATE AMINO TRANSFERASE 38 U/L (15-37); BILIRUBIN,TOTAL 0.2 MG/DL (0.2-1.0); BLOOD UREA NITROGEN 9 mg/dL (7-18); CARBON DIOXIDE 25 MMOL/L (21-32); CHLORIDE 106 MMOL/L (98-107); CREATININE 0.7 MG/DL (0.55-1.30); POTASSIUM 3.6 MMOL/L (3.5-5.1); SODIUM 139 MMOL/L (136-145)
[2020-08-06 08:03] LABS: BASOPHILS % (AUTO) 0.3 % (0.0-2.0); EOSINOPHILS % (AUTO) 0.3 % (0.0-3.0); HEMATOCRIT 28.9 % (37.0-47.0); HEMOGLOBIN 9.5 G/DL (12.0-16.0); LYMPHOCYTES % (AUTO) 20.7 % (20.0-45.0); MEAN CORPUSCULAR VOLUME 92 FL (80-99); MONOCYTES % (AUTO) 5.3 % (1.0-10.0); NEUTROPHILS % (AUTO) 73.5 % (45.0-75.0); PLATELET COUNT 300 K/UL (150-450); RED BLOOD COUNT 3.15 M/UL (4.20-5.40); RED CELL DISTRIBUTION WIDTH 16.2 % (11.6-14.8)
--- NOTE | 2020-08-06 08:20 | NUR ---
NURSE NOTES: Received patient report from BREA Hoover. Patient shows no signs of distress or pain at the time. Patient is AO x4 awake and able to make needs known. Patient is on room air and shows no signs of respiratory distress. Triple lumen is intact and patent. There are no signs of erythema, infiltration, or bleeding. Bed is in the lowest position, call light is within reach, side rails up x3. Will continue to monitor.
--- NOTE | 2020-08-06 08:41 | Infectious Diseases Prog Note ---
Assessment/Plan 44yo F with: SIRS vs Sepsis Coffee ground emesis, r/o UGIB Diarrhea - Cdiff neg Low grade fever x1 Leukocytosis, improving CXR: no acute process u/a neg 08/03 UCx neg, BCx neg Rapid COVID neg Flu neg 08/05 Abd US: 1. Right pleural effusion. 2. Severe gallbladder wall thickening and edema. The gallbladder is underdistended. No definite gallstones or sludge. However, sonographic Foster's sign is reportedly positive. Findings may represent acute cholecystitis. GEORGETTE, improving Acute encephalopathy CT head: no acute process Elevated LFTs, improving Utox +opiates, benzos, cocaine, MJ Recent aspiration PNA HIV screen neg Plan: Stop empiric PO Vancomycin 125mg qid #3 given neg C.dif Monitor off abx F/u stool cx Trend WBC F/u EGD results F/u acute hep panel 08/04 SP CTX #2 empiric Monitor CBC/CMP Monitor temp curve, hemodynamics Monitor resp status D/w RN Thank you for this consult. [facility] will continue to follow. Subjective Allergies: Coded Allergies: No Known Allergies (Unverified , 08/03/20) AF On RA NAD WBC improving C.dif neg EGD today then plan for d/c Feeling much better than prior Mild RUQ pain Objective Last 24 Hour Vital Signs Date Time Temp Pulse Resp B/P (MAP) Pulse Ox O2 Delivery O2 Flow Rate FiO2 08/06/20 04:00 85 08/06/20 04:00 97.7 71 18 152/84 (106) 96 08/06/20 01:00 97.3 76 18 155/80 (105) 95 08/06/20 00:00 78 08/05/20 21:00 Room Air 08/05/20 20:00 99.3 74 18 152/87 (108) 96 08/05/20 20:00 87 08/05/20 16:00 99.1 76 18 150/89 (109) 98 08/05/20 16:00 82 08/05/20 15:10 90 20 100 Room Air 21 89 22 98 08/05/20 12:00 99.2 94 18 147/82 (103) 98 08/05/20 12:00 81 08/05/20 09:00 Room Air Height (Feet): 5 Height (Inches): 3.00 Weight (Pounds): 132 Gen: NAD in bed HEENT: NCAT, EOMI, PERRL CV: RRR Pulm: CTAB Abd: Soft, mild RUQ pain, no rebound/guarding, no other pain Ext: No c/c/e Neuro: Awake Microbiology Date/Time Source Procedure Growth Status 08/05/20 02:10 Stool Stool Culture Pending Resulted 08/05/20 02:10 Stool Clostridium difficile Toxin Assay - Final Resulted 08/04/20 20:20 Nasopharynx - Final Complete 08/04/20 20:20 Nasopharynx - Final Complete Laboratory Tests Test 08/05/20 10:03 08/05/20 21:10 08/06/20 05:00 Urine Opiates Screen Positive (NEGATIVE) H Urine Barbiturates Screen Negative (NEGATIVE) Phencyclidine (PCP) Screen Negative (NEGATIVE) Urine Amphetamines Screen Negative (NEGATIVE) Urine Benzodiazepines Screen Positive (NEGATIVE) H Urine Cocaine Screen Positive (NEGATIVE) H Urine Marijuana (THC) Screen Positive (NEGATIVE) H POC Whole Blood Glucose Pending White Blood Count 13.0 K/UL (4.8-10.8) H Red Blood Count 3.15 M/UL (4.20-5.40) L Hemoglobin 9.5 G/DL (12.0-16.0) L Hematocrit 28.9 % (37.0-47.0) L Mean Corpuscular Volume 92 FL (80-99) Mean Corpuscular Hemoglobin 30.1 PG (27.0-31.0) Mean Corpuscular Hemoglobin Concent 32.8 G/DL (32.0-36.0) Red Cell Distribution Width 16.2 % (11.6-14.8) H Platelet Count 300 K/UL (150-450) Mean Platelet Volume 5.9 FL (6.5-10.1) L Neutrophils (%) (Auto) 73.5 % (45.0-75.0) Lymphocytes (%) (Auto) 20.7 % (20.0-45.0) Monocytes (%) (Auto) 5.3 % (1.0-10.0) Eosinophils (%) (Auto) 0.3 % (0.0-3.0) Basophils (%) (Auto) 0.3 % (0.0-2.0) Sodium Level 139 MMOL/L (136-145) Potassium Level 3.6 MMOL/L (3.5-5.1) Chloride Level 106 MMOL/L (98-107) Carbon Dioxide Level 25 MMOL/L (21-32) Anion Gap 8 mmol/L (5-15) Blood Urea Nitrogen 9 mg/dL (7-18) Creatinine 0.7 MG/DL (0.55-1.30) Estimat Glomerular Filtration Rate > 60 mL/min (>60) Glucose Level 101 MG/DL (74-106) Calcium Level 8.0 MG/DL (8.5-10.1) L Total Bilirubin 0.2 MG/DL (0.2-1.0) Aspartate Amino Transf (AST/SGOT) 38 U/L (15-37) H Alanine Aminotransferase (ALT/SGPT) 107 U/L (12-78) H Alkaline Phosphatase 84 U/L (46-116) Total Protein 6.1 G/DL (6.4-8.2) L Albumin 2.8 G/DL (3.4-5.0) L Globulin 3.3 g/dL Albumin/Globulin Ratio 0.8 (1.0-2.7) L Current Medications Medications (Trade) Dose Ordered Sig/Azeb Route PRN Reason Start Time Stop Time Status Last Admin Dose Admin Acetaminophen (Tylenol) 650 mg Q4H PRN ORAL FEVER 08/03/20 08:30 09/02/20 08:29 08/04/20 00:22 Albuterol/ Ipratropium (Albuterol/ Ipratropium) 3 ml EVERY 4 HOURS PRN HHN Shortness of Breath 08/03/20 08:30 08/08/20 08:29 08/05/20 15:10 Alprazolam (Xanax) 0.25 mg Q6H PRN ORAL For Anxiety 08/03/20 21:30 08/10/20 21:29 08/05/20 22:52 Dextrose (Dextrose 50%) 25 ml Q30M PRN IV Hypoglycemia 08/03/20 08:30 11/01/20 08:29 Dextrose (Dextrose 50%) 50 ml Q30M PRN IV Hypoglycemia 08/03/20 08:30 11/01/20 08:29 Heparin Sodium (Porcine) (Heparin 5000 units/ml) 5,000 units EVERY 12 HOURS SUBQ 08/03/20 10:00 1/18/21 09:59 08/05/20 08:37 Iron Sucrose 100 mg/Sodium Chloride 60 ml @ 240 mls/hr BEDTIME IVPB 08/05/20 21:00 08/09/20 21:14 08/05/20 21:35 Metoclopramide HCl (Reglan) 10 mg Q6H PRN IVP Nausea & Vomiting 08/04/20 07:30 09/03/20 07:29 08/04/20 07:53 Morphine Sulfate (Morphine Sulfate) 2 mg EVERY 2 HOURS PRN IVP For Pain 08/04/20 01:30 08/11/20 01:29 08/06/20 06:42 Ondansetron HCl (Zofran) 4 mg Q4H PRN IVP Nausea & Vomiting 08/04/20 09:00 09/03/20 08:59 08/05/20 21:55 Pantoprazole (Protonix) 40 mg EVERY 12 HOURS ORAL 08/05/20 09:00 09/04/20 08:59 08/05/20 21:45 Polyethylene Glycol (Miralax) 17 gm DAILYPRN PRN ORAL Constipation 08/03/20 08:30 09/02/20 08:29 Promethazine HCl/ Codeine (Phenergan with Codeine) 5 ml EVERY 6 HOURS PRN ORAL cough 08/03/20 08:30 09/02/20 08:29 08/04/20 08:09 Vancomycin HCl (Firvanq) 125 mg FOUR TIMES A DAY ORAL 08/04/20 21:00 08/11/20 20:59 08/05/20 21:45 Lizeth Cummings M.D. Aug 06, 2020 08:41
[2020-08-06] MEDS: Heparin 5000 units/ml inj SUBQ SCH (09:00)
[2020-08-06] MEDS: Vancomycin oral 125mg/2.5ml ORAL SCH (09:02)
--- NOTE | 2020-08-06 09:10 | Pre-Procedure Note/Attestation ---
Pre-Procedure Note/Attestation Complete Prior to Procedure Planned Procedure: not applicable Procedure Narrative: egd Indications for Procedure Pre-Operative Diagnosis: gerd Attestation I attest that I discussed the nature of the procedure; its benefits; risks and complications; and alternatives (and the risks and benefits of such alternatives), prior to the procedure, with the patient (or the patient's legal traffic representative). I attest that, if there was a reasonable possibility of needing a blood transfusion, the patient (or the patient's legal traffic representative) was given the [facility] standardized written summary, pursuant to the Ivan Harshal Blood Safety Act ([place] Health and Safety Code # 1645, as amended). I attest that I re-evaluated the patient just prior to the surgery and that there has been no change in the patient's H&P, except as documented below: Timothy Bhakta MD Aug 06, 2020 09:10
--- NOTE | 2020-08-06 09:13 | Pulmonology Progress Note ---
Subjective ROS Limited/Unobtainable: No Interval Events: doing better Allergies: Coded Allergies: No Known Allergies (Unverified , 08/03/20) Objective Last 24 Hour Vital Signs Date Time Temp Pulse Resp B/P (MAP) Pulse Ox O2 Delivery O2 Flow Rate FiO2 08/06/20 04:00 85 08/06/20 04:00 97.7 71 18 152/84 (106) 96 08/06/20 01:00 97.3 76 18 155/80 (105) 95 08/06/20 00:00 78 08/05/20 21:00 Room Air 08/05/20 20:00 99.3 74 18 152/87 (108) 96 08/05/20 20:00 87 08/05/20 16:00 99.1 76 18 150/89 (109) 98 08/05/20 16:00 82 08/05/20 15:10 90 20 100 Room Air 21 89 22 98 08/05/20 12:00 99.2 94 18 147/82 (103) 98 08/05/20 12:00 81 Intake and Output 08/05/20 08/06/20 19:00 07:00 Intake Total 1790 ml 250 ml Balance 1790 ml 250 ml Intake Oral 1790 ml 250 ml # Voids 6 2 # Bowel Movements 1 General Appearance: cachetic HEENT: normocephalic, atraumatic Respiratory: lungs clear, normal breath sounds Cardiovascular: normal peripheral pulses, normal rate Abdomen: normal bowel sounds, no organomegaly Extremities: no cyanosis, no clubbing Skin: no rash 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 Lymphatic: no neck adenopathy Microbiology Date/Time Source Procedure Growth Status 08/05/20 02:10 Stool Stool Culture Pending Resulted 08/05/20 02:10 Stool Clostridium difficile Toxin Assay - Final Resulted 08/04/20 20:20 Nasopharynx - Final Complete 08/04/20 20:20 Nasopharynx - Final Complete Laboratory Tests 08/05/20 10:03: Urine Opiates Screen PositiveH, Urine Barbiturates Screen Negative, Phencyclidine (PCP) Screen Negative, Urine Amphetamines Screen Negative, Urine Benzodiazepines Screen PositiveH, Urine Cocaine Screen PositiveH, Urine Marijuana (THC) Screen PositiveH 08/05/20 21:10: POC Whole Blood Glucose [Pending] 08/06/20 05:00: White Blood Count 13.0H, Red Blood Count 3.15L, Hemoglobin 9.5L, Hematocrit 28.9L, Mean Corpuscular Volume 92, Mean Corpuscular Hemoglobin 30.1, Mean Corpuscular Hemoglobin Concent 32.8, Red Cell Distribution Width 16.2H, Platelet Count 300, Mean Platelet Volume 5.9L, Neutrophils (%) (Auto) 73.5, Lymphocytes (%) (Auto) 20.7, Monocytes (%) (Auto) 5.3, Eosinophils (%) (Auto) 0.3, Basophils (%) (Auto) 0.3, Sodium Level 139, Potassium Level 3.6, Chloride Level 106, Carbon Dioxide Level 25, Anion Gap 8, Blood Urea Nitrogen 9, Creatinine 0.7, Estimat Glomerular Filtration Rate > 60, Glucose Level 101, Calcium Level 8.0L, Total Bilirubin 0.2, Aspartate Amino Transf (AST/SGOT) 38H, Alanine Aminotransferase (ALT/SGPT) 107H, Alkaline Phosphatase 84, Total Protein 6.1L, Albumin 2.8L, Globulin 3.3, Albumin/Globulin Ratio 0.8L Current Medications Medications (Trade) Dose Ordered Sig/Azeb Route PRN Reason Start Time Stop Time Status Last Admin Dose Admin Acetaminophen (Tylenol) 650 mg Q4H PRN ORAL FEVER 08/03/20 08:30 09/02/20 08:29 08/04/20 00:22 Albuterol/ Ipratropium (Albuterol/ Ipratropium) 3 ml EVERY 4 HOURS PRN HHN Shortness of Breath 08/03/20 08:30 08/08/20 08:29 08/05/20 15:10 Alprazolam (Xanax) 0.25 mg Q6H PRN ORAL For Anxiety 08/03/20 21:30 08/10/20 21:29 08/05/20 22:52 Dextrose (Dextrose 50%) 25 ml Q30M PRN IV Hypoglycemia 08/03/20 08:30 11/01/20 08:29 Dextrose (Dextrose 50%) 50 ml Q30M PRN IV Hypoglycemia 08/03/20 08:30 11/01/20 08:29 Heparin Sodium (Porcine) (Heparin 5000 units/ml) 5,000 units EVERY 12 HOURS SUBQ 08/03/20 10:00 09/17/20 09:59 08/05/20 08:37 Iron Sucrose 100 mg/Sodium Chloride 60 ml @ 240 mls/hr BEDTIME IVPB 08/05/20 21:00 08/09/20 21:14 08/05/20 21:35 Metoclopramide HCl (Reglan) 10 mg Q6H PRN IVP Nausea & Vomiting 08/04/20 07:30 09/03/20 07:29 08/04/20 07:53 Morphine Sulfate (Morphine Sulfate) 2 mg EVERY 2 HOURS PRN IVP For Pain 08/04/20 01:30 08/11/20 01:29 08/06/20 09:02 Ondansetron HCl (Zofran) 4 mg Q4H PRN IVP Nausea & Vomiting 08/04/20 09:00 09/03/20 08:59 08/05/20 21:55 Pantoprazole (Protonix) 40 mg EVERY 12 HOURS ORAL 08/05/20 09:00 09/04/20 08:59 08/06/20 09:02 Polyethylene Glycol (Miralax) 17 gm DAILYPRN PRN ORAL Constipation 08/03/20 08:30 09/02/20 08:29 Promethazine HCl/ Codeine (Phenergan with Codeine) 5 ml EVERY 6 HOURS PRN ORAL cough 08/03/20 08:30 09/02/20 08:29 08/04/20 08:09 Vancomycin HCl (Firvanq) 125 mg FOUR TIMES A DAY ORAL 08/04/20 21:00 08/11/20 20:59 08/06/20 09:02 Assessment/Plan Problems: (1) Metabolic encephalopathy (2) Altered mental status (3) Marijuana abuse (4) Benzodiazepine abuse (5) Opiate abuse, episodic Assessment/Plan improving labs reviewed EGD today can go home afterwards Roland Lechuga MD Aug 06, 2020 09:13
[2020-08-06] MEDS ORDERED: PROTONIX20 MG ORAL (09:14)
--- NOTE | 2020-08-06 09:39 | Anethesia Preoperative Eval ---
Anesthesia Pre-op PMH/ROS General Date of Evaluation: Aug 06, 2020 Time of Evaluation: 09:36 Anesthesiologist: miguel ASA Score: ASA 4 Mallampati Score Class I : Soft palate, uvula, fauces, pillars visible Class II: Soft palate, uvula, fauces visible Class III: Soft palate, base of uvula visible Class IV: Only hard plate visible Mallampati Classification: Class II Surgeon: jorge Diagnosis: gi bleed Surgical Procedure: egd Anesthesia History: none Social History: drug use Family History: no anesthesia problems Allergies: Coded Allergies: No Known Allergies (Unverified , 08/03/20) Medications: see eMAR Patient NPO?: Yes Past Medical History Neurologic/Psychiatric: Reports: other - metabolic encephalopathy Anesthesia Pre-op Phys. Exam Physician Exam Last Vital Signs Date Time Temp Pulse Resp B/P (MAP) Pulse Ox O2 Delivery O2 Flow Rate FiO2 08/06/20 04:00 85 08/06/20 04:00 97.7 18 152/84 (106) 96 08/05/20 21:00 Room Air 08/05/20 15:10 21 08/04/20 04:00 Constitutional: NAD Neurologic: CN 2-12 intact Cardiovascular: RRR Respiratory: CTA Gastrointestinal: S/NT/ND Airway Exam Mallampati Score: Class II MO: full Neck: flexible TMD: 2fb ROM: full Anesthesia Pre-op A/P Labs Microbiology Date/Time Source Procedure Growth Status 08/05/20 02:10 Stool Stool Culture Pending Resulted 08/05/20 02:10 Stool Clostridium difficile Toxin Assay - Final Resulted 08/04/20 20:20 Nasopharynx - Final Complete 08/04/20 20:20 Nasopharynx - Final Complete 08/03/20 03:34 Straight Cath Urine Culture - Final NO GROWTH AFTER 48 HOURS Complete 08/03/20 01:25 Blood Blood Culture - Preliminary NO GROWTH AFTER 72 HOURS Resulted Hematology Test 08/06/20 05:00 White Blood Count 13.0 K/UL (4.8-10.8) H Red Blood Count 3.15 M/UL (4.20-5.40) L Hemoglobin 9.5 G/DL (12.0-16.0) L Hematocrit 28.9 % (37.0-47.0) L Mean Corpuscular Volume 92 FL (80-99) Mean Corpuscular Hemoglobin 30.1 PG (27.0-31.0) Mean Corpuscular Hemoglobin Concent 32.8 G/DL (32.0-36.0) Red Cell Distribution Width 16.2 % (11.6-14.8) H Platelet Count 300 K/UL (150-450) Mean Platelet Volume 5.9 FL (6.5-10.1) L Neutrophils (%) (Auto) 73.5 % (45.0-75.0) Lymphocytes (%) (Auto) 20.7 % (20.0-45.0) Monocytes (%) (Auto) 5.3 % (1.0-10.0) Eosinophils (%) (Auto) 0.3 % (0.0-3.0) Basophils (%) (Auto) 0.3 % (0.0-2.0) Chemistry Test 08/05/20 21:10 08/06/20 05:00 POC Whole Blood Glucose Pending Sodium Level 139 MMOL/L (136-145) Potassium Level 3.6 MMOL/L (3.5-5.1) Chloride Level 106 MMOL/L (98-107) Carbon Dioxide Level 25 MMOL/L (21-32) Anion Gap 8 mmol/L (5-15) Blood Urea Nitrogen 9 mg/dL (7-18) Creatinine 0.7 MG/DL (0.55-1.30) Estimat Glomerular Filtration Rate > 60 mL/min (>60) Glucose Level 101 MG/DL (74-106) Calcium Level 8.0 MG/DL (8.5-10.1) L Total Bilirubin 0.2 MG/DL (0.2-1.0) Aspartate Amino Transf (AST/SGOT) 38 U/L (15-37) H Alanine Aminotransferase (ALT/SGPT) 107 U/L (12-78) H Alkaline Phosphatase 84 U/L (46-116) Total Protein 6.1 G/DL (6.4-8.2) L Albumin 2.8 G/DL (3.4-5.0) L Globulin 3.3 g/dL Albumin/Globulin Ratio 0.8 (1.0-2.7) L Risk Assessment & Plan Assessment: asa3 Plan: mac Status Change Before Surgery: No Pre-Antibiotics Drug: Nasima Vigil MD 7, 2020 09:39
[2020-08-06] MEDS ORDERED: fentaNYL 100 mcg/2 mL IV PRN (09:45)
[2020-08-06] MEDS ORDERED: DiphenhydrAMINE 50mg/ml Inj IVP PRN (09:45)
[2020-08-06] MEDS ORDERED: Atropine Inj 1mg/10ml Syr IVP PRN (09:45)
[2020-08-06] MEDS: ALPRAZolam 0.25mg tab ORAL PRN (10:46)
--- NOTE | 2020-08-06 12:22 | NUR ---
CASE MANAGEMENT:REVIEW 08/06/20 SI: UGIB URINE(+) THC,COCAINE,OPIATES AND BENZODIAZEPINES 97.7 71 18 152/84 96% ON RA WBC+13.0 H/H-9.5/28.9 IS: IV VENOFER QHS PROTONIX PO Q12 HEPARIN SQ Q12 : TELEMETRY STATUS DCP: FROM HOME PLAN: EGD DISCHARGE HOME AFTER EGD
[2020-08-06] MEDS ORDERED: NS 500ML IVPB ONE (12:35)
[2020-08-06] MEDS ORDERED: Lidocaine 1% MPF 10mg/ml 5ml ONE (12:37)
[2020-08-06] MEDS ORDERED: NS 110ml ONE (12:37)
--- NOTE | 2020-08-06 12:47 | Endoscopy Procedure Note ---
Endoscopy Procedure Note General Indication for Procedure: abd pain, anmeia Procedures Performed: EGD Operative Findings/Diagnosis: gastritis Specimen: yes Pt Tolerated Procedure Well: Yes Estimated Blood Loss: none Anesthesia Anesthesiologist: nela Anesthesia: MAC Inserted Devices Implant(s) used?: No GI Core Measures 50 yrs or older w/o bx or poly: Not Applicable 10yrs. F/U recommended: Not Applicable Timothy Bhakta MD Aug 06, 2020 12:47
--- NOTE | 2020-08-06 12:55 | Internal Med Progress Note ---
Subjective Date of Service: Aug 06, 2020 Physician Name LeahBrent Attending Physician Aric Charles MD Current Medications Medications (Trade) Dose Ordered Sig/Azeb Route PRN Reason Start Time Stop Time Status Last Admin Dose Admin Acetaminophen (Tylenol) 650 mg Q4H PRN ORAL FEVER 08/03/20 08:30 09/02/20 08:29 08/04/20 00:22 Acetaminophen (Tylenol) 650 mg Q4H PRN ORAL Mild Pain (Pain Scale 1-3) 08/06/20 09:45 08/06/20 16:00 Al Hydroxide/Mg Hydroxide (Mylanta) 15 ml Q1H PRN ORAL gi upset 08/06/20 09:45 08/06/20 18:00 Albuterol/ Ipratropium (Albuterol/ Ipratropium) 3 ml EVERY 4 HOURS PRN HHN Shortness of Breath 08/03/20 08:30 08/08/20 08:29 08/05/20 15:10 Alprazolam (Xanax) 0.25 mg Q6H PRN ORAL For Anxiety 08/03/20 21:30 08/10/20 21:29 08/06/20 10:46 Atropine Sulfate (Atropine) 0.5 mg Q5M PRN IVP bpm less than 45 08/06/20 09:45 08/06/20 18:00 Dextrose (Dextrose 50%) 25 ml Q30M PRN IV Hypoglycemia 08/03/20 08:30 11/01/20 08:29 Dextrose (Dextrose 50%) 50 ml Q30M PRN IV Hypoglycemia 08/03/20 08:30 11/01/20 08:29 Diphenhydramine HCl (Benadryl) 25 mg Q15M PRN IVP Itching 08/06/20 09:45 08/06/20 18:00 Fentanyl Citrate (Sublimaze 100 mcg/2 mL) 25 mcg Q10M PRN IV Moderate Pain (Pain Scale 4-6) 08/06/20 09:45 08/06/20 16:00 Heparin Sodium (Porcine) (Heparin 5000 units/ml) 5,000 units EVERY 12 HOURS SUBQ 08/03/20 10:00 09/17/20 09:59 08/05/20 08:37 Hydralazine HCl (Apresoline) 5 mg Q30M PRN IV SBP>160 OR___/DBP>90 OR___ 08/06/20 09:45 08/06/20 18:00 Iron Sucrose 100 mg/Sodium Chloride 60 ml @ 240 mls/hr BEDTIME IVPB 08/05/20 21:00 08/09/20 21:14 08/05/20 21:35 Metoclopramide HCl (Reglan) 10 mg Q6H PRN IVP Nausea & Vomiting 08/04/20 07:30 09/03/20 07:29 08/04/20 07:53 Morphine Sulfate (Morphine Sulfate) 2 mg EVERY 2 HOURS PRN IVP For Pain 08/04/20 01:30 08/11/20 01:29 08/06/20 12:12 Ondansetron HCl (Zofran) 4 mg Q1H PRN IVP Nausea & Vomiting 08/06/20 09:45 08/06/20 18:00 Ondansetron HCl (Zofran) 4 mg Q4H PRN IVP Nausea & Vomiting 08/04/20 09:00 09/03/20 08:59 08/06/20 10:46 Pantoprazole (Protonix) 40 mg EVERY 12 HOURS ORAL 08/05/20 09:00 09/04/20 08:59 08/06/20 09:02 Polyethylene Glycol (Miralax) 17 gm DAILYPRN PRN ORAL Constipation 08/03/20 08:30 09/02/20 08:29 Promethazine HCl/ Codeine (Phenergan with Codeine) 5 ml EVERY 6 HOURS PRN ORAL cough 08/03/20 08:30 09/02/20 08:29 08/04/20 08:09 Allergies: Coded Allergies: No Known Allergies (Unverified , 08/03/20) ROS Limited/Unobtainable: No Constitutional: Reports: no symptoms HEENT: Reports: no symptoms Cardiovascular: Reports: no symptoms Respiratory: Reports: no symptoms Gastrointestinal/Abdominal: Reports: no symptoms Genitourinary: Reports: no symptoms Neurologic/Psychiatric: Reports: no symptoms Subjective 44 Y F admitted with Upper GI bleed. Cover for Int [facility] - Dr Charles. Await Endoscopy scheduled for 08/06/20 Objective Last Vital Signs Date Time Temp Pulse Resp B/P (MAP) Pulse Ox O2 Delivery O2 Flow Rate FiO2 08/06/20 12:42 97.7 08/06/20 09:00 Room Air 08/06/20 04:00 85 08/06/20 04:00 18 152/84 (106) 96 08/05/20 15:10 21 08/04/20 04:00 Laboratory Tests Test 08/05/20 21:10 08/06/20 05:00 POC Whole Blood Glucose Pending White Blood Count 13.0 K/UL (4.8-10.8) H Red Blood Count 3.15 M/UL (4.20-5.40) L Hemoglobin 9.5 G/DL (12.0-16.0) L Hematocrit 28.9 % (37.0-47.0) L Mean Corpuscular Volume 92 FL (80-99) Mean Corpuscular Hemoglobin 30.1 PG (27.0-31.0) Mean Corpuscular Hemoglobin Concent 32.8 G/DL (32.0-36.0) Red Cell Distribution Width 16.2 % (11.6-14.8) H Platelet Count 300 K/UL (150-450) Mean Platelet Volume 5.9 FL (6.5-10.1) L Neutrophils (%) (Auto) 73.5 % (45.0-75.0) Lymphocytes (%) (Auto) 20.7 % (20.0-45.0) Monocytes (%) (Auto) 5.3 % (1.0-10.0) Eosinophils (%) (Auto) 0.3 % (0.0-3.0) Basophils (%) (Auto) 0.3 % (0.0-2.0) Sodium Level 139 MMOL/L (136-145) Potassium Level 3.6 MMOL/L (3.5-5.1) Chloride Level 106 MMOL/L (98-107) Carbon Dioxide Level 25 MMOL/L (21-32) Anion Gap 8 mmol/L (5-15) Blood Urea Nitrogen 9 mg/dL (7-18) Creatinine 0.7 MG/DL (0.55-1.30) Estimat Glomerular Filtration Rate > 60 mL/min (>60) Glucose Level 101 MG/DL (74-106) Calcium Level 8.0 MG/DL (8.5-10.1) L Total Bilirubin 0.2 MG/DL (0.2-1.0) Aspartate Amino Transf (AST/SGOT) 38 U/L (15-37) H Alanine Aminotransferase (ALT/SGPT) 107 U/L (12-78) H Alkaline Phosphatase 84 U/L (46-116) Total Protein 6.1 G/DL (6.4-8.2) L Albumin 2.8 G/DL (3.4-5.0) L Globulin 3.3 g/dL Albumin/Globulin Ratio 0.8 (1.0-2.7) L Microbiology Date/Time Source Procedure Growth Status 08/05/20 02:10 Stool Stool Culture Pending Resulted 08/05/20 02:10 Stool Clostridium difficile Toxin Assay - Final Resulted 08/04/20 20:20 Nasopharynx - Final Complete 08/04/20 20:20 Nasopharynx - Final Complete Intake and Output 08/05/20 08/06/20 19:00 07:00 Intake Total 1790 ml 250 ml Balance 1790 ml 250 ml Intake Oral 1790 ml 250 ml # Voids 6 2 # Bowel Movements 1 Objective PHYSICAL EXAMINATION: GENERAL: Patient is well-developed, well-nourished, female, in no apparent distress. HEENT: Eyes, pupils equal and responsive to light and accommodation. Extraocular movements are intact. NECK: Supple without lymphadenopathy. CHEST: Room air. Decreased breath sounds bilateral bases. Otherwise, without wheezes or rales. CARDIOVASCULAR: Regular rhythm and rate. S1, S2 are normal without murmurs, rubs, or gallops. ABDOMEN: Soft, nontender, nondistended. Positive bowel sounds. No evidence of hepatosplenomegaly. Currently, no rebound or guarding noted. EXTREMITIES: Negative for clubbing, cyanosis, or edema. RECTAL: Not performed. GENITOURINARY: Not performed. NEUROLOGIC: Cranial nerves II through XII are grossly intact without focal deficits. Motor strength is 5/5 bilaterally. Deep tendon reflexes are 2+ bilat Assessment/Plan Assessment/Plan ASSESSMENT: This is a 44-year-old female. 1. Upper gastrointestinal hemorrhage. 2. Respiratory distress. TREATMENT: 1. Upper gastrointestinal hemorrhage. Gastroenterology = Dr. Timothy Bhakta. Await endoscopy on 08/06/20. Continue Protonix. 2. Respiratory distress. Pulmonary=Dr Lechuga. Currently on room air 3. DVT prophylaxis=heparin Brent Lynn MD Aug 06, 2020 12:54
--- NOTE | 2020-08-06 13:02 | NUR ---
INSURANCE CLINICALS AND REVIEW FAXED TO [place] [employer] (08/05-08/06) FX [phone] PH [phone]
--- NOTE | 2020-08-06 13:08 | Immediate Post-Op Evaluation ---
Immediate Post-Op Evalulation Immediate Post-Op Evalulation Procedure: egd w/bx Date of Evaluation: Aug 06, 2020 Time of Evaluation: 13:05 IV Fluids: 100ml 0.9ns Blood Products: none Estimated Blood Loss: negligible Blood Pressure Systolic: 164 Blood Pressure Diastolic: 88 Pulse Rate: 77 Respiratory Rate: 18 O2 Sat by Pulse Oximetry: 100 Temperature (Fahrenheit): 98.4 Pain Score (1-10): 0 Nausea: No Vomiting: No Complications none Patient Status: awake, reacts, patent Hydration Status: adequate Drug: Nasima Vigil MD Aug 06, 2020 13:08
--- NOTE | 2020-08-06 13:10 | 48 Hour Post Anesthesia Eval ---
Post Anesthesia Evaluation Procedure: egd w/bx Date of Evaluation: Aug 06, 2020 Time of Evaluation: 13:09 Blood Pressure Systolic: 161 0: 93 Pulse Rate: 63 Respiratory Rate: 18 Temperature (Fahrenheit): 98.4 O2 Sat by Pulse Oximetry: 100 Airway: patent Nausea: No Vomiting: No Pain Intensity: 0 Hydration Status: adequate Cardiopulmonary Status: stable Mental Status/LOC: patient returned to baseline Post-Anesthesia Complications: none Follow-up care needed: N/A Nasima Bernard MD Aug 06, 2020 13:09
--- NOTE | 2020-08-06 14:26 | NUR ---
NURSE NOTES: Patient went home with family member. Patient shows no signs of distress or pain at the time. Central line removed. No bleeding noted. Belongings list reviewed with patient. She denied bringing earrings with her. Note on belongings list. manager monitoring removed.
--- NOTE | 2020-08-06 17:00 | Procedure Note ---
DATE OF PROCEDURE: 08/06/2020 ENDOSCOPIST: Timothy Bhakta M.D. ANESTHESIOLOGIST: Nasima Morales M.D. PROCEDURE PERFORMED: Upper endoscopy with biopsy. INSTRUMENT USED: Olympus adult flexible endoscope. INDICATIONS FOR PROCEDURE: Upper GI bleeding. The procedure, risks, benefits, and possible consequences, including hemorrhage, aspiration, perforation and infection, and alternative treatments, were explained to the patient/legal guardian by Dr. Timothy Bhakta and the patient/legal guardian understood and accepted these risks. DESCRIPTION OF PROCEDURE: After informed consent was obtained and the patient was adequately sedated, the Olympus upper endoscope was advanced through the mouth into the second portion of the duodenum and retroflexion maneuver was performed in the stomach. The patient has evidence of diffuse gastritis. Random biopsies from the antrum was obtained to rule out H. pylori infection. The rest of upper endoscopic examination was grossly within normal limits. The patient tolerated the procedure very well without any complications. SUMMARY OF FINDINGS: Gastritis, otherwise normal upper endoscopic examination. RECOMMENDATIONS: Follow up on biopsy results and treat accordingly. I want to thank Dr. Aric Charles for this kind referral. Timothy Bhakta M.D. DR: MARIELA JOB#: [id number] CC: Aric Charles M.D.; Fax#: [phone]
--- NOTE | 2020-08-07 10:37 | NUR ---
INSURANCE REFAXED CLINICALS/REVIEW/ DC INSTRUCTIONS TO [facility] (08/05-08/06) [phone] PH [phone]
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
--- NOTE | 2020-08-08 15:00 | NUR ---
INSURANCE DC SUMMARY FAXED TO [facility] [phone]
== END 2020-08-06 14:32 | disposition home or self-care (01) | DRG 720 ==
LOC: EDBD 00:59 → EMR 01:14 → 2W 02:20 → EDBEDREQSVC 02:46 → EDBEDREQ 05:41 → ICU 18:38 → 2W 08-04 09:20 → 2E 08-04 14:58
PROC: 0DB78ZX Excision of Stomach, Pylorus, Via Natural or Artificial Opening Endoscopic, Diagnostic (ICD-10-PCS; principal; 2020-08-06 12:43)
DX: A41.9 Sepsis, unspecified organism (principal); K29.71 Gastritis, unspecified, with bleeding; G93.41 Metabolic encephalopathy; I27.20 Pulmonary hypertension, unspecified; N17.9 Acute kidney failure, unspecified; F19.10 Other psychoactive substance abuse, uncomplicated; R19.7 Diarrhea, unspecified; K21.9 Gastro-esophageal reflux disease without esophagitis; I36.1 Nonrheumatic tricuspid (valve) insufficiency; F17.200 Nicotine dependence, unspecified, uncomplicated
CPT/HCPCS: 36415; 70450; 71045; 76700; 80053; 80069; 80307; 81003; 82140; 82150; 82270; 82375; 82378; 82607; 82746; 82803; 82962; 83540; 83550; 83605; 83615; 83690; 83735; 83880; 84100; 84443; 84484; 84702; 85007; 85025; 85044; 85060; 85610; 85651; 85730; 86703; 86705; 86709; 86710; 86803; 87040; 87045; 87086; 87324; 87340; 93005; 93306; 93970; 94003; 94150; 94640; 96361; 96365; 96367; 96375; 99291; G0480; J2405; J2765; J7030; J7620; U0002